=== PATIENT | male | born 1930 | race Caucasian/White ===

== ENCOUNTER 2017-03-24 16:03 | Inpatient (IN) | payer OTHER, MEDICAID ==
[~2017-03-24] VITALS: Ht 185.4 cm; Wt 98.9 kg
[~2017-03-24 16:03] MED LIST: ASPIR 8181 MG PO; AVODART0.5 MG PO; DEMADEX20 MG PO; DICLOFENAC SODI75 MG PO; FLOMAX0.4 MG PO; KLOR-CON 1010 MEQ PO; LASIX 20 MG TAB20 MG PO; LASIX 40 MG TAB40 M2 PO; LEVAQUIN 750 M750 MG PO; LISINOPRIL10 MG PO; MIRALAX17 GM PO; NYAMYC15 GM TOP; ONDANSETRON HCL4 M2 PO; PACERONE 200 M200 M1; PACERONE 200 M200 M1 PO; PACERONE200 MG PO; PREDNISONE 10 M10 MG PO; PROTONIX40 M1 PO; SENOKOT-S1 TA1 PO; SIMVASTATIN40 MG PO; TOPROL XL25 MG; TOPROL XL50 MG PO
[2017-03-24 16:05] VITALS: BP 138/58
[2017-03-24] MEDS ORDERED: LASIX 20 MG TAB20 MG PO (16:09)
[2017-03-24] MEDS ORDERED: CENTRUM SILVER1 EAC2 PO (16:10)
[2017-03-24] MEDS ORDERED: ZOCOR20 MG PO (16:10)
[2017-03-24] MEDS ORDERED: AVODART0.5 MG PO (16:10)
[2017-03-24 16:24] LABS: URINE BILIRUBIN NEGATIVE (Negative); URINE BLOOD NEGATIVE (Negative); URINE CLARITY CLEAR; URINE COLOR YELLOW; URINE GLUCOSE-RANDOM NEGATIVE (Negative); URINE KETONES NEGATIVE (Negative); URINE LEUKOCYTES-REFLEX 2+ (Negative); URINE NITRITE-REFLEX NEGATIVE (Negative); URINE PROTEIN NEGATIVE (Negative); URINE UROBILINOGEN 0.2 E.U./dl (0.2-1.0)
[2017-03-24 16:33] LABS: BACTERIA-REFLEX >30 Many /HPF (None Seen); MUCUS None Seen strn/LPF (None Seen); SQUAMOUS 0-3 Few /LPF (0-3); URINE WBC-REFLEX 6-15 Few /HPF (0-5); WBC CLUMPS Few (None Seen)
[2017-03-24 16:34] LABS: CRYSTALS None Seen /LPF (None Seen); HYALINE CASTS 0-3 Few /LPF (None Seen); URINE RBC None Seen /HPF (0-2)
[2017-03-24 16:58] LABS: HEMATOCRIT 31.2 % (42.0-52.0); HEMOGLOBIN 10.2 gm/dL (14.0-18.0); MCH 31.4 pg (26.0-34.0); MCHC 32.8 g/dL (28.0-37.0); MCV 95.5 fL (80.0-100.0); MPV 9.3 fl. (7.2-11.1); NUCLEATED RBCS 0 /100WBC; PLATELET COUNT* 161 thou/uL (150-400); RBC 3.27 mil/uL (4.50-6.00); RDW-CV 14.3 % (10.5-14.5); WBC 16.6 thou/uL (4.0-11.0)
[2017-03-24 17:05] LABS: CALCIUM 8.6 mg/dL (8.5-10.1); CREATININE 2.1 mg/dL (0.6-1.3)
[2017-03-24 17:09] LABS: ALBUMIN 2.7 g/dL (3.4-5.0); TOTAL BILIRUBIN 0.7 mg/dL (<0.1-1.0); TOTAL PROTEIN 6.1 g/dL (6.4-8.2)
[2017-03-24 17:24] LABS: ABSOLUTE LYMPHOCYTES 1.7 thou/uL (0.8-5.3); ABSOLUTE MONOCYTES 1.7 thou/uL (0.0-1.2); ABSOLUTE NEUTROPHILS 13.3 thou/uL (1.6-8.1); PLATELET ESTIMATE ADEQUATE
[2017-03-24 17:39] VITALS: BP 108/52
--- NOTE | 2017-03-24 18:32 | NUR ---
PT ARRIVED TO ROOM 108 VIA CART. IV INFILTRATED AAND REPLACED. PT ORIENTED TO ROOM. CALL LIGHT WITHIN REACH
[2017-03-24 18:35] VITALS: BP 109/43
[2017-03-24 20:00] VITALS: BP 115/49
[2017-03-25] VITALS: BP 110/39
[2017-03-25 04:00] VITALS: BP 111/45
--- NOTE | 2017-03-25 04:32 | NUR ---
PATIENT A/O X 4 AND VSS, ALTHOUGH HIS BLOOD PRESSURE HAS BEEN SLIGHTLY LOW. OVERNIGHT PATIENT WAS C/O BEING UNCOMFORTABLE IN THE BED, SO HE WAS UP MOST OF THE NIGHT IN A CHAIR. PATIENT'S CONTINUES TO BE WEAK, WITH AN UNSTEADY GAIT, AND IN NEED OF A WALKER TO AMBULATE. PATIENT HAS A HX OF AFIB AND ATRIAL FLUTTER, ALTHOUGH HIS HEART RATE REMAINS STEADY AND REGULAR DURING NIGHT. PATIENT HAS REDDENDED DISCOLORATION IN LOWER EXTREMETIES, BILATERALLY, AND PLACEMENT OF SCD'S HAS NOT BEEN ENFORCED AT THIS TIME. PATIENT'S DIET HAS BEEN CHANGED FROM RENAL TO REGULAR BY PHYSICIAN. PATIENT HAS NOT C/O ANY PAIN/DISCOMFORT DURING URINATION OVERNIGHT. HOURLY ROUNDING PERFORMED. NURSING TO FOLLOW-UP NECESSARY. ALL FALL PRECAUTIONS IN PLACE, INCLUDING CALL LIGHT WITHIN REACH. WILL CONTINUE TO MONITOR CLOSELY.
[2017-03-25 04:42] LABS: CALCIUM 8.1 mg/dL (8.5-10.1); CREATININE 2.1 mg/dL (0.6-1.3); POTASSIUM 4.1 mmol/L (3.5-5.1)
[2017-03-25 08:00] VITALS: BP 103/87
--- NOTE | 2017-03-25 13:11 | EKG ---
[place] [address] ELECTROCARDIOGRAM REPORT Name: ARIEL ARMENDARIZ Room: [address] ADM IN M.R.#: [id number] Admission: 03/24/17 Attend Phys: Timmy Suazo Discharge: Date of : 34 Report #: [id number] THIS REPORT FOR: //name// [facility] ED Test Date: 2017-03-24 Test Time: 16:53:48 Pat Name: ARIEL AMRENDARIZ Department: Room: [facility] Gender: Tv Host: Surya BEAUCHAMP : 1930 Requested By: Kaylan Lerma Order Number: [id number] MD: Sergo Bird Measurements Intervals [place] Rate: 66 P: 38 ID: [id number] QRS: -16 QRSD: 105 T: 50 QT: 422 QTc: 443 Interpretive Statements Sinus rhythm Atrial premature complex Borderline left axis deviation Abnormal R-wave progression, early transition Compared to ECG 01/27/2017 05:30:32 Atrial premature complex(es) now present Electronically Signed On 03-25-2017 13:11:17 MERCURY RECOVERER by Sergo Bird [email or web address] <ELECTRONICALLY SIGNED> By: Sergo Bird MD, FAC 03/25/17 1311 1653 1653 Sergo Bird MD, [facility] /EPI
--- NOTE | 2017-03-25 14:23 | NUR ---
RECIEVED O.T. EVAL AND CHART REVIEWED. PT. IS UP AD FANTASMA IN ROOM. TALKING WITH PT. AND NURSE AND HE IS INDEPENDENT WITH TOILETING AND DRESSED HIMSELF TODAY IN A BUTTON-UP SHIRT AND PAJAMA BOTTOMS. PT. DENIES NEED FOR O.T. SERVICES. O.T. SERVICES ARE NOT INDICATED AT THIS TIME.
--- NOTE | 2017-03-25 15:13 | NUR ---
PT UP IN ROOM WITH STEADY GAIT USING WALKER. PT CALLS APPROPRIATELY FOR ASSIST. PT/OT EVAL TODAY. PT DENIES NEED. PT TOLERATING PO WELL
--- NOTE | 2017-03-25 15:34 | NUR ---
CM SPOKE TO THE PATIENT TO DISCUSS HOME SITUATION, DISCHARGE PLANNING, AND TO INFORM OF THE ROLE OF CM. PATIENT ALERT, ORIENTED, AND INDEPENDENT WITH ADL'S. PATIENT RESIDES AT HOME ALONE. PATIENT USES A WALKER FOR MOBILITY. PATIENT RECENTLY DISCHARGED FROM [facility]. PATIENT HAS HH HX WITH [facility]. PATIENT PLANS TO RETURN HOME AT DISCHARGE. CM WILL REMAIN AVAILABLE TO ASSIST AND FOLLOW NEEDED.
[2017-03-25 16:01] VITALS: BP 109/77
--- NOTE | 2017-03-25 17:39 | NUR ---
ASSUME CARE OF PATIENT AT AT 1500. ALERT AND ORIENTED X4. UP AD FANTASMA IN ROOM WITH WALKER. IV IS PATENT AND SALINE LOCKED. DENIES PAIN AND NAUSEA. TOLERATING DIET. VSS ON 2L O2. HOURLY ROUNDS HAVE BEEN MAINTAINED SINCE ASSUMING CARE FOR PATIENT. CALL LIGHT IS WITHIN REACH. NURSING WILL CONTINUE TO MONITOR.
[2017-03-25 20:15] VITALS: BP 120/51
[2017-03-26 03:39] VITALS: BP 111/43
[2017-03-26 03:42] LABS: HEMATOCRIT 28.9 % (42.0-52.0); HEMOGLOBIN 9.5 gm/dL (14.0-18.0); MCH 31.4 pg (26.0-34.0); MCHC 32.8 g/dL (28.0-37.0); MCV 95.9 fL (80.0-100.0); MPV 9.1 fl. (7.2-11.1); RBC 3.02 mil/uL (4.50-6.00); RDW-CV 14.3 % (10.5-14.5); WBC 14.3 thou/uL (4.0-11.0)
[2017-03-26 03:54] LABS: CALCIUM 8.3 mg/dL (8.5-10.1); CREATININE 2.3 mg/dL (0.6-1.3); MAGNESIUM 2.1 mg/dL (1.8-2.4); POTASSIUM 4.9 mmol/L (3.5-5.1)
--- NOTE | 2017-03-26 05:18 | NUR ---
PATIENT ALERT AND ORIENTED. VITALS STABLE ON 3L OF OXYGEN. UP INDEPENDENTLY IN ROOM WITH WALKER. ENCOURAGED TO REPOSITION EVERY TWO HOURS. HEALING WOUND ON MID LOWER BUTTOCK, BARRIER CREAM APPLIED. DENIES PAIN OR ANY DISCOMFORT. HOURLY ROUNDS. INSTRUCTED TO CALL FOR ASSISTANCE. NURSING WILL CONTINUE TO MONITOR.
[2017-03-26 07:42] VITALS: BP 116/62
[2017-03-26 15:46] VITALS: BP 122/64
--- NOTE | 2017-03-26 16:25 | NUR ---
PATIENT REMAINS AT BASELINE ORIENTATION. DENIES PAIN. VOIDING PER URINAL OR TOILET. BM THIS SHIFT. URINE CULTURE CAME BACK ESBL+. PLACED IN ISOLATION. ZOSYN ORDERED. O2 3L. SAT 94%. AMBULATES AD FANTASMA. TOLERATING MEALS. NEPHROLOGY CONSULT CALLED- WILL SEE PT TOMORROW. CALL LIGHT WITHIN REACH. WILL CONTINUE TO MONITOR.
[2017-03-26 21:00] VITALS: BP 116/68
[2017-03-27 03:58] LABS: HEMATOCRIT 29.9 % (42.0-52.0); HEMOGLOBIN 9.8 gm/dL (14.0-18.0); MCH 31.3 pg (26.0-34.0); MCHC 32.7 g/dL (28.0-37.0); MCV 95.9 fL (80.0-100.0); MPV 9.1 fl. (7.2-11.1); RBC 3.11 mil/uL (4.50-6.00); RDW-CV 14.6 % (10.5-14.5); WBC 8.1 thou/uL (4.0-11.0)
[2017-03-27 04:11] LABS: CALCIUM 8.4 mg/dL (8.5-10.1); CREATININE 1.8 mg/dL (0.6-1.3); MAGNESIUM 2.2 mg/dL (1.8-2.4); POTASSIUM 4.1 mmol/L (3.5-5.1)
[2017-03-27 04:13] VITALS: BP 152/64
--- NOTE | 2017-03-27 05:19 | NUR ---
PATIENT ALERT AND ORIENTED. VITALS STABLE. ON 3L OF OXYGEN. CONTACT ISOLATION FOR ESBL IN THE URINE. DENIES ANY NEEDS. UP INDEPENDENTLY IN ROOM. REPOSITIONS SELF IN BED. INSTRUCTED TO CALL FOR ASSISTANCE. HOURLY ROUNDS. NURSING WILL CONTINUE TO MONITOR.
[2017-03-27 08:25] VITALS: BP 121/54
[2017-03-27 16:01] VITALS: BP 127/58
--- NOTE | 2017-03-27 16:15 | NUR ---
PATIENT REMAINS ALERT AND ORIENTED. AMBULATING AD FANTASMA IN ROOM. REMAINS IN ISO FOR ESBL. BM TODAY. NEW IV THIS AM. ZOSYN Q6. NEPHROLOGY CONSULTED. CALL LIGHT WITHIN REACH. WILL CONTINUE TO MONITOR.
[2017-03-27 20:40] VITALS: BP 129/58
[2017-03-28 04:00] VITALS: BP 136/67
[2017-03-28 04:05] LABS: HEMATOCRIT 29.5 % (42.0-52.0); MCHC 33.8 g/dL (28.0-37.0); MCV 94.8 fL (80.0-100.0); MPV 9.1 fl. (7.2-11.1); RBC 3.11 mil/uL (4.50-6.00); RDW-CV 14.3 % (10.5-14.5); WBC 8.4 thou/uL (4.0-11.0)
[2017-03-28 04:19] LABS: CALCIUM 8.5 mg/dL (8.5-10.1); CREATININE 1.9 mg/dL (0.6-1.3); POTASSIUM 4.2 mmol/L (3.5-5.1)
[2017-03-28 04:21] LABS: CALCIUM 8.4 mg/dL (8.5-10.1); MAGNESIUM 2.3 mg/dL (1.8-2.4); POTASSIUM 4.4 mmol/L (3.5-5.1)
--- NOTE | 2017-03-28 07:39 | NUR ---
PATIENT ALERT AND ORIENTED. VITALS STABLE. ON 3L OF OXYGEN. UP INDEPENDENTLY. DENIES ANY DISCOMFORT. SLEPT COMFORTABLY THROUGH THE NIGHT. HOURLY ROUNDS. BED ALARM IN USE. NURSING WILL CONTINUE TO MONITOR.
[2017-03-28 07:45] VITALS: BP 130/72
--- NOTE | 2017-03-28 12:29 | NUR ---
Nutrition: Pt assessed for pressure ulcer. Admitted with sepsis 2/2 UTI. RX noted. H/o CKD III-IV, HTN. Physician indicated Moderate PCM - defer DX. Labs: albumin 2.7, prealbumin 18.7. Pt is eating 75-100% of regular diet. Per notes, wound is healing, on bilat buttocks. Wt: 218#. No nutritional interventions needed at this time. Consider Mild risk.
[2017-03-28 16:00] VITALS: BP 134/70
--- NOTE | 2017-03-28 16:21 | NUR ---
PATIENT REMAINS ALERT AND ORIENTED. IV SALINE LOCKED. DENIES PAIN. AMBULATING AD FANTASMA. O2 AT 3L. PATIENT WILL DISCHARGE TOMORROW. BM THIS AM. BRIEFS PROVIDED. PATIENT REFUSED TO HAVE BUTTOCKS WOUND LOOKED AT AGAIN, STATING IT WAS ALREADY PHOTOGRAPHED. TOLERATING MEALS. VSS. CALL LIGHT WITHIN REACH. WILL CONTINUE TO MONITOR.
[2017-03-28 21:00] VITALS: BP 143/53
[2017-03-29 08:00] VITALS: BP 155/62
--- NOTE | 2017-03-29 08:15 | NUR ---
PATIENT HAS SLEPT WELL THROUGHOUT THE NIGHT WIHTOUT ANY ISSUES. NO C/O PAIN. PATIENT USES BEDSIDE URINAL AND IS UP AD-FANTASMA WITH WALKER. VSS ON 3L 02 VIA NASAL CANNULA. PATIENT REFUSED TO HAVE AM LABS DRAWN. IV IN LEFT HAND-SL. PATIENT INSTRUCTED TO USE CALL LIGHT WHEN NEEDING ASSISTANCE. HOURLY ROUNDS MADE. WILL CONTINUE WITH PLAN OF CARE AND NURSING TO MONITOR.
[2017-03-29 08:31] VITALS: BP 155/62
--- NOTE | 2017-03-29 09:41 | NUR ---
PATIENT REFUSED LABS THIS AM
[2017-03-29 10:29] LABS: CALCIUM 8.6 mg/dL (8.5-10.1); CREATININE 1.5 mg/dL (0.6-1.3)
[2017-03-29] MEDS ORDERED: CIPRO500 MG PO (13:24)
[2017-03-29] MEDS ORDERED: CIPRO250 M2 PO (13:28)
--- NOTE | 2017-03-29 14:00 | NUR ---
SPOKE WITH PT.ABOUT HOME HEALTH. HE SAID HE HAS A CAREGIVER THAT COMES -W- TO HELP CLEAN HIS HOUSE,DO ERRANDS,HELP HIM BATHE. EXPLAINED A HOME HEALTH NURSE WOULD COME OUT TO MAKE SURE HIS LUNGS ARE CLEAR, MANAGE HIS MEDICATIONS, ETC. HE FELT THIS WOULD BE OK. HE HAD BEEN ON SERVICE WITH [facility] IN THE PAST. CM SPOKE WITH PRANE[facility]/[employer] . SHE SAID THEY HAD ACTUALLY RELEASED HIM FROM SERVICE ON 03/23. PT.CAME BACK IN TO HOSPITAL 03/24. SHE SAID THEY WOULD ACCEPT HIM BACK ONTO SERVICE. FAXED DISCHARGE ORDERS AND DISCHARGE SUMMARIES AND FACE SHEET TO HER AT [phone]. HE WAS CALLING HIS AMANDEEP DUCKWORTH TO COME TO PICK HIM UP AND TOLD HER TO BRING A PORTABLE O2 TANK.
--- NOTE | 2017-03-29 14:25 | NUR ---
PATIENT DISCHARGED TO HOME AT THIS TIME. IV REMOVED. PATIENT WILL HAVE HOME HEALTH. REFUSED DISCHARGE PICTURE OF BUTTOCKS. SCRIPT FOR CIPRO SENT TO PHARMACY. PATIENT INSTRUCTED TO HOLD LASIX AND FLOMAX UNTIL SEEN BY PCP. PATIENT VERBALIZED UNDERSTANDING. DISCHARGED WITH [facility]RIEND[facility].
[2017-03-29 17:12] LABS: IgA 238 mg/dL (61-437); IgG 815 mg/dL (700-1600); IgM 46 mg/dL (15-143)
[2017-04-01 09:10] LABS: M-SPIKE Not Observed g/dL (Not Observed)
--- NOTE | 2017-04-12 12:37 | CON ---
[address] [address] CONSULTATION Name: ARIEL ARMENDARIZ Room: [address] IN M.R.#: [id number] Admission: 03/24/17 Attend Phys: Timmy Suazo Discharge: 03/29/17 Date of : 34 Report #: [id number] THIS REPORT FOR: //name// CC: Tom Arcos DATE OF SERVICE: 03/27/2017 CONSULTING PHYSICIAN: Mauricio Allen MD REASON FOR CONSULTATION: Acute kidney injury on chronic kidney disease stage 3. CHIEF COMPLAINT: Increased frequency of urination. HISTORY OF PRESENT ILLNESS: This is an 86-year-old very pleasant male with past medical history of chronic kidney disease stage 3 with baseline creatinine of around 1.3-1.6, degenerative joint disease, hypertension, history of ischemic cardiomyopathy who came in feeling weak and having increased frequency of urination. He was found to have a urinary tract infection. His creatinine was 2.1 on admission, then went up to 2.3, but it is down to 1.8. His diuretic, Lasix, was held. He was also given some IV fluids. He is growing ESBL E. coli in his urine and is getting IV Zosyn for that. He had renal ultrasound also, which did not show any acute abnormality. The patient has had several urinary tract infections and most recently in January of last year and at that time also it was because of diuretics. The patient was also taking NSAIDs at that time, which he has now stopped. The patient is feeling better now. REVIEW OF SYSTEMS: The patient feels weak, otherwise 10-point review of systems done, negative. PAST MEDICAL HISTORY: As above: 1. Degenerative joint disease. 2. Hypertension. 3. Ischemic cardiomyopathy. 4. Chronic kidney disease stage 3 with baseline creatinine 1.3-1.6. 5. Benign prostatic hypertrophy. 6. Atrial flutter/atrial fibrillation. 7. Gastroesophageal reflux disease. PAST SURGICAL HISTORY: Includes cardiac catheterization, appendectomy. ALLERGIES: Reviewed. MEDICATIONS: Current home medications and [place] [address] CONSULTATION Name: ARIEL ARMENDARIZ Room: [address] IN [facility].#: [id number] Admission: 03/24/17 Attend Phys: Timmy Suazo Discharge: 03/29/17 Date of : 34 Report #: [id number] SOCIAL HISTORY: Never smoker. No alcohol use or recreational drug use. FAMILY HISTORY: Noncontributory. PHYSICAL EXAMINATION: VITAL SIGNS: Blood pressure is 121/54, pulse rate of 64, temperature 36.3, respiratory rate is 16. GENERAL: He is awake, alert, oriented x 3, no acute distress. HEAD, EYES, EARS, NOSE, THROAT: Mucous membranes are moist. NECK: No JVD. CHEST: Clear to auscultation bilaterally, no crackles heard. CARDIOVASCULAR: S1, S2 normal. No murmurs heard. ABDOMEN: Obese, otherwise soft, nondistended, nontender. Bowel sounds are present. EXTREMITIES: He has 1+ lower extremity edema as well as erythema. NEUROLOGIC: Gross neurological function seems to be intact. PSYCHIATRIC: Mood and affect seems to be normal. LABORATORY DATA: Hemoglobin is 9.8, platelet count is 169. Sodium is 143, potassium 4.1, creatinine is 1.8. Other labs were reviewed. IMAGING: Renal ultrasound and chest x-ray were reviewed. ASSESSMENT: 1. Acute kidney injury on chronic kidney disease stage 3, likely because of dehydration. 2. Lower tract urinary tract infection with extended-spectrum beta-lactamase Escherichia coli. 3. Hypertension. PLAN: The patient likely has acute renal failure because of Lasix. Agree with holding diuretics for now. Creatinine is getting better. The patient does not require extra IV fluids. The patient had workup for chronic kidney disease back in January. SPEP was negative. He is getting IV Zosyn for his lower tract urinary tract infection. His blood pressure is controlled. The patient should follow up with us in 2-3 weeks after discharge. Thank you for this consultation. I will continue to follow along. <ELECTRONICALLY SIGNED> By: Ernestina Neri MD 04/12/17 1237 0830 [id number] Neri MD /nt
== END 2017-03-29 14:27 | disposition home health service (06) | DRG 871 ==
LOC: M.ERS 16:03 → M.TBA-ER 16:48 → M.ORTHSURG 16:48
PROVIDERS: Family Medicine; Internal Medicine; Internal Medicine Nephrology; Physician Assistant; ADMIT Internal Medicine
DX: A41.9 Sepsis, unspecified organism (principal); N17.0 Acute kidney failure with tubular necrosis; N39.0 Urinary tract infection, site not specified; E44.0 Moderate protein-calorie malnutrition; I48.92 Unspecified atrial flutter; I12.9 Hypertensive chronic kidney disease with stage 1 through stage 4 chronic kidney disease, or unspecified chronic kidney disease; N18.3 Chronic kidney disease, stage 3 (moderate); M19.90 Unspecified osteoarthritis, unspecified site; I25.5 Ischemic cardiomyopathy; B96.20 Unspecified Escherichia coli [E. coli] as the cause of diseases classified elsewhere; E86.0 Dehydration; Z16.12 Extended spectrum beta lactamase (ESBL) resistance; N40.0 Benign prostatic hyperplasia without lower urinary tract symptoms; I48.91 Unspecified atrial fibrillation; K21.9 Gastro-esophageal reflux disease without esophagitis; E66.9 Obesity, unspecified; D64.9 Anemia, unspecified; T50.2X5A Adverse effect of carbonic-anhydrase inhibitors, benzothiadiazides and other diuretics, initial encounter; Y92.89 Other specified places as the place of occurrence of the external cause; Z68.28 Body mass index [BMI] 28.0-28.9, adult; Z90.49 Acquired absence of other specified parts of digestive tract; I25.2 Old myocardial infarction; Z79.82 Long term (current) use of aspirin; Z79.899 Other long term (current) drug therapy

== ENCOUNTER 2017-08-06 21:01 | Emergency (ER) | payer OTHER, MEDICAID ==
[~2017-08-06] VITALS: Ht 185.4 cm; Wt 102.1 kg
[~2017-08-06 21:01] MED LIST changes: +CENTRUM SILVER1 EAC2 PO; +CIPRO250 M2 PO; +CIPRO500 MG PO; +ZOCOR20 MG PO
[2017-08-06] MEDS ORDERED: FINASTERIDE (21:07)
[2017-08-06] MEDS ORDERED: FUROSEMIDE (21:07)
[2017-08-06 21:21] LABS: ABSOLUTE EOSINOPHILS 0.3 thou/uL (0.0-0.7); ABSOLUTE MONOCYTES 0.8 thou/uL (0.0-1.2); ABSOLUTE NEUTROPHILS 4.2 thou/uL (1.6-8.1); BASOPHILS 0.6 %; EOSINOPHILS 3.5 %; HEMATOCRIT 32.4 % (42.0-52.0); HEMOGLOBIN 10.6 gm/dL (14.0-18.0); MCH 30.9 pg (26.0-34.0); MCHC 32.7 g/dL (28.0-37.0); MCV 94.5 fL (80.0-100.0); MONOCYTES 11.4 %; MPV 9.1 fl. (7.2-11.1); NUCLEATED RBCS 0 /100WBC; PLATELET COUNT* 187 thou/uL (150-400); POLYS 57.5 %; RBC 3.43 mil/uL (4.50-6.00); RDW-CV 14.5 % (10.5-14.5); WBC 7.3 thou/uL (4.0-11.0)
[2017-08-06 21:30] LABS: ANION GAP 5 mmol/L (7-16); BUN 20 mg/dL (7-18); CALCIUM 8.7 mg/dL (8.5-10.1); CHLORIDE 104 mmol/L (98-107); CO2 33 mmol/L (21-32); GLUCOSE 119 mg/dL (70-99); POTASSIUM 4.6 mmol/L (3.5-5.1); SODIUM 142 mmol/L (136-145)
[2017-08-06 21:41] LABS: ALBUMIN 3.1 g/dL (3.4-5.0); ALKALINE PHOSPHATASE 140 U/L (46-116); NT-PRO BRAIN NAT PEPTIDE 543 pg/mL (<300); SGOT 20 U/L (15-37); SGPT 20 U/L (30-65); TOTAL BILIRUBIN 0.4 mg/dL (<0.1-1.0); TOTAL PROTEIN 6.9 g/dL (6.4-8.2); TROPONIN-I LEVEL <0.06 ng/mL (<0.06)
[2017-08-07 01:36] VITALS: BP 148/56
--- NOTE | 2017-08-08 18:38 | EKG ---
[place] [address] ELECTROCARDIOGRAM REPORT Name: SHARLENEFLOYDARIEL Ramone [id number] Admission: 08/06/17 Attend Phys: Discharge: 08/07/17 Date of : 34 Report #: [id number] THIS REPORT FOR: //name// [facility] ED Test Date: 2017-08-06 Test Time: 21:28:31 Pat Name: ARIEL ARMENDARIZ Department: Room: Gender: M Turbo Generator Oiler: SACHIN : 1930 Requested By: Janneth Roger Order Number: [id number] MD: Tom Steinberg Measurements Intervals [place] Rate: 67 P: -1 DC: 154 QRS: -13 QRSD: 101 T: 57 QT: 447 QTc: 472 Interpretive Statements Sinus rhythm Abnormal R-wave progression, early transition Baseline wander in lead(s) II,III,aVL,aVF Compared to ECG 03/24/2017 16:53:48 Atrial premature complex(es) no longer present Electronically Signed On 08-08-2017 18:38:16 CDT by Tom Steinberg [email or web address] <ELECTRONICALLY SIGNED> By: Tom Steinberg MD, [facility] 08/08/17 1838 27 27 Tom Steinberg MD, [facility] /EPI
== END 2017-08-07 01:40 | disposition home or self-care (01) ==
LOC: M.ERS 21:01
PROVIDERS: Emergency Medicine
DX: R06.00 Dyspnea, unspecified (principal); I11.0 Hypertensive heart disease with heart failure; I50.9 Heart failure, unspecified; M19.90 Unspecified osteoarthritis, unspecified site; K21.9 Gastro-esophageal reflux disease without esophagitis; Z95.5 Presence of coronary angioplasty implant and graft; Z90.49 Acquired absence of other specified parts of digestive tract

== ENCOUNTER 2018-04-25 15:37 | Emergency (ER) | payer OTHER, MEDICAID ==
[~2018-04-25] VITALS: Ht 177.8 cm; Wt 108.0 kg
[~2018-04-25 15:37] MED LIST changes: +FINASTERIDE; +FUROSEMIDE
[2018-04-25 15:45] VITALS: BP 170/34
[2018-04-25 16:00] LABS: ABSOLUTE BASOPHILS 0.1 thou/uL (0.0-0.2); ABSOLUTE EOSINOPHILS 0.2 thou/uL (0.0-0.7); ABSOLUTE LYMPHOCYTES 2.6 thou/uL (0.8-5.3); ABSOLUTE MONOCYTES 1.1 thou/uL (0.0-1.2); ABSOLUTE NEUTROPHILS 5.4 thou/uL (1.6-8.1); BASOPHILS 0.7 %; EOSINOPHILS 2.5 %; HEMATOCRIT 34.4 % (42.0-52.0); HEMOGLOBIN 11.3 gm/dL (14.0-18.0); LYMPHOCYTES 27.4 %; MCH 31.6 pg (26.0-34.0); MCHC 32.9 g/dL (28.0-37.0); MONOCYTES 11.8 %; MPV 9.9 fl. (7.2-11.1); NUCLEATED RBCS 0 /100WBC; PLATELET COUNT* 156 thou/uL (150-400); POLYS 57.6 %; RBC 3.58 mil/uL (4.50-6.00); RDW-CV 14.2 % (10.5-14.5); WBC 9.3 thou/uL (4.0-11.0)
[2018-04-25 16:11] LABS: PROTIME 10.1 Seconds (9.20-11.50)
[2018-04-25 16:14] LABS: ALBUMIN 3.4 g/dL (3.4-5.0); CREATININE 2.4 mg/dL (0.6-1.3); POTASSIUM 4.3 mmol/L (3.5-5.1); TOTAL BILIRUBIN 0.5 mg/dL (<0.1-1.0); TOTAL PROTEIN 7.1 g/dL (6.4-8.2)
== END 2018-04-25 16:45 | disposition home or self-care (01) ==
LOC: M.ERS 15:37
PROVIDERS: Family Medicine
DX: R04.0 Epistaxis (principal); M19.90 Unspecified osteoarthritis, unspecified site; K21.9 Gastro-esophageal reflux disease without esophagitis; I11.0 Hypertensive heart disease with heart failure; I50.9 Heart failure, unspecified; Z95.5 Presence of coronary angioplasty implant and graft; Z90.49 Acquired absence of other specified parts of digestive tract

== ENCOUNTER 2019-05-02 21:11 | Inpatient (IN) | payer OTHER, MEDICAID ==
[~2019-05-02] VITALS: Ht 185.4 cm; Wt 106.8 kg
[2019-05-02 21:16] VITALS: BP 118/73
[2019-05-02 21:56] LABS: BE 1.5 mmol/L (-2 to +3); PCO2 44.9 mmHg (35.0-45.0); PO2 76.6 mmHg (75.0-100.0); pH 7.393 (7.340-7.450)
[2019-05-02 22:01] LABS: INFLUENZA A ANTIGEN Negative (Negative); INFLUENZA B ANTIGEN Negative (Negative)
[2019-05-02 22:04] LABS: ABSOLUTE BASOPHILS 0.1 thou/uL (0.0-0.2); ABSOLUTE EOSINOPHILS 0.2 thou/uL (0.0-0.7); ABSOLUTE LYMPHOCYTES 1.1 thou/uL (0.8-5.3); ABSOLUTE MONOCYTES 1.4 thou/uL (0.0-1.2); ABSOLUTE NEUTROPHILS 7.4 thou/uL (1.6-8.1); BASOPHILS 0.7 %; EOSINOPHILS 1.5 %; HEMATOCRIT 30.5 % (42.0-52.0); HEMOGLOBIN 10.3 gm/dL (14.0-18.0); LYMPHOCYTES 10.6 %; MCH 32.4 pg (26.0-34.0); MCHC 33.8 g/dL (28.0-37.0); MCV 95.9 fL (80.0-100.0); MONOCYTES 14.2 %; MPV 9.4 fl. (7.2-11.1); NUCLEATED RBCS 0 /100WBC; PLATELET COUNT* 137 thou/uL (150-400); RBC 3.18 mil/uL (4.50-6.00); RDW-CV 14.5 % (10.5-14.5); WBC 10.2 thou/uL (4.0-11.0)
[2019-05-02 22:11] LABS: CALCIUM 7.9 mg/dL (8.5-10.1); CREATININE 2.4 mg/dL (0.6-1.3); POTASSIUM 4.5 mmol/L (3.5-5.1)
[2019-05-02 22:22] LABS: ALBUMIN 2.8 g/dL (3.4-5.0); TOTAL BILIRUBIN 0.5 mg/dL (<0.1-1.0); TOTAL PROTEIN 6.3 g/dL (6.4-8.2)
[2019-05-03 00:51] VITALS: BP 162/72
[2019-05-03 04:00] VITALS: BP 131/47
--- NOTE | 2019-05-03 08:41 | NUR ---
PT ADMITTED TO ROOM 208 DURING [employer]; VSS, A+OX4, 3LO2 NC, BEDREST, BILATERAL RILEY REDNESS (PICTURES TAKEN), FLANAGAN PLACED IN ER, VOICE HOARSENESS, AFEBRILE. HE IS ABLE TO COMMUNICATE HIS NEEDS TO STAFF WITH MINOR DIFFICULTY; VOICE IS HOARSE. HE HAS DENIED THE NEED FOR PAIN MEDICATION UP TO THIS TIME. FLANAGAN HAS BEEN PATENT UP TO THIS TIME. WOUND CARE CONSULTED.
[2019-05-03 08:54] VITALS: BP 139/58
[2019-05-03 11:49] VITALS: BP 143/56
--- NOTE | 2019-05-03 13:12 | NUR ---
WOUND NURSE: PATIENT SEEN TO ADDRESS INTEGUMATARY SYSTEM ON BLE. PRESENT WITH REDNESS NO WOUNDS. SKIN COVERED IN PLACES WITH OILY CRUSTS. PATIENT WITH 2 PLUS PITTING EDEMA IN BILATERAL FEET. CAPILLARY REFILL IS </= 3 SECONDS. LEGS ARE WARM AND REDDENED. I RAISED THE FOB TO HELP CONTROL SWELLING AND RECOMMEND USE OF TOE TO KNEE TUBIGRIPS SIZE E BLE -- PATIENT'S NURSE WAS INFORMED OF THIS RECOMMENDATION AND SHE TO DISCUSS WITH PHYSICIAN.
--- NOTE | 2019-05-03 15:30 | NUR ---
Pt is A&O. Resides at home alone. Independent with ADLs. Pt has a caregiver through [facility] that comes MWF for 4.25hrs, she completes the cleaning. Pt prepares his own meals and niece provides transportation. Pt uses a walker for mobility. Pt wears home o2 continuous at 2L through [facility]. Hx of [facility] . Hx of skilled at [facility]. Goal is home at ct, per , anticipate dc in a few days. Pt does not anticipate any needs. Following.
[2019-05-03 16:22] VITALS: BP 129/51
--- NOTE | 2019-05-03 16:37 | EKG ---
[place] [address] ELECTROCARDIOGRAM REPORT Name: ARIEL ARMENDARZI Room: [address] ADM IN M.R.#: [id number] Admission: 05/02/19 Attend Phys: Franklin Felix Discharge: Date of : 34 Date of Service: 05/02/19 2300 Report #: [id number] THIS REPORT FOR: //name// [facility] ED Test Date: 2019-05-02 Test Time: 23:00:18 Pat Name: ARIEL ARMENDARIZ Department: Room: [facility] Gender: M Inside Sales Coordinator: XIOMY : 1930 Requested By: Lainey Gonsales Order Number: [id number] MD: Tom Steinberg Measurements Intervals [place] Rate: 57 P: 16 KS: 196 QRS: -12 QRSD: 115 T: 66 QT: 442 QTc: 431 Interpretive Statements Sinus rhythm Incomplete right bundle branch block Compared to ECG 08/06/2017 21:28:31 Incomplete right bundle-branch block now present Electronically Signed On 05-03-2019 16:36:13 CDT by Tom Steinberg [email or web address] <ELECTRONICALLY SIGNED> By: Tom Steinberg MD, FAC 05/03/19 1636 99 99 Tom Steinberg MD, [facility] /EPI
--- NOTE | 2019-05-03 18:28 | 2DMMODE ---
[place] [address] 2 D/M-MODE ECHOCARDIOGRAM Name: ARIEL ARMENDARIZ Ramone Room: [address] ADM IN R.#: [id number] Admission: 05/02/19 Attend Phys: Franklin Felix Discharge: Date of : 34 Date of Service: 05/03/19 1827 Report #: [id number] THIS REPORT FOR: cc: Tom Hagen John E. DO Liston, Michael J. MD [facility] ~ APPROVED REPORT Study performed: 05/03/2019 11:09:26 EXAM: Comprehensive 2D, Doppler, and color-flow Echocardiogram Patient Location: In-Patient Room #: [facility] Status: routine BSA: 2.30 HR: 64 bpm BP: 139/58 mmHg Rhythm: NSR Other Information Study Quality: Good Indications Congestive Heart Failure Dyspnea 2D Dimensions IVSd: 11.35 (7-11mm) LVOT Diam: 20.83 (18-24mm) LVDd: 53.06 mm PWd: 10.23 (7-11mm) Ascending Ao: 33.93 (22-36mm) LVDs: 37.25 (25-40mm) Aortic Root: 35.22 mm Volumes Left Atrial Volume (Systole) LA ESV Index: 28.50 mL/m2 Aortic Valve AoV Peak Mariano.: 1.65 m/s AO Peak Gr.: 10.89 mmHg LVOT Max P.24 mmHg AO Mean Gr.: 6.19 mmHg LVOT Mean P.87 mmHg LVOT Max V: 1.25 m/s AO V2 VTI: 35.81 cm LVOT Mean V: 0.77 m/s MARNI (VTI): 2.80 cm2 LVOT V1 VTI: 29.40 [place] [address] 2 D/M-MODE ECHOCARDIOGRAM Name: ARIEL ARMENDARIZ Room: [address] IN .R.#: [id number] Admission: 05/02/19 Attend Phys: Franklin Felix Discharge: Date of : 34 Date of Service: 05/03/19 1827 Report #: [id number] Mitral Valve E/A Ratio: 1.18 MV Decel. Time: 194.76 ms MV E Max Mariano.: 0.94 m/s MV PHT: 56.48 ms MVA (PHT): 3.90 cm2 TDI E/Lateral E': 6.71 E/Medial E': 8.55 Medial E' Mariano.: 0.11 m/s Lateral E' Mariano.: 0.14 m/s Pulmonary Valve PV Peak Mariano.: 1.00 m/s PV Peak Gr.: 3.97 mmHg Tricuspid Valve RAP Estimate: 5.00 mmHg TR Peak Gr.: 17.47 mmHg RVSP: 22.00 mmHg PA Pressure: 22.00 mmHg Left Ventricle The left ventricle is normal size. There is normal LV segmental wall motion. There is normal left ventricular wall thickness. Left ventricular systolic function is normal. LVEF is 55-60%. Transmitral Doppler flow pattern suggests impaired LV relaxation. Right Ventricle The right ventricle is normal size. The right ventricular systolic function is normal. Atria Left atrium is mildly dilated. The right atrium size is normal. Aortic Valve Mild aortic valve sclerosis. No aortic regurgitation is present. There is no aortic valvular stenosis. Mitral Valve The mitral valve is normal in structure. Mild mitral regurgitation. No evidence of mitral valve stenosis. Tricuspid Valve The tricuspid valve is normal in structure. Trace tricuspid regurgitation. [place] [address] 2 D/M-MODE ECHOCARDIOGRAM Name: ARIEL ARMENDARIZ Room: [address] IN [facility]#: [id number] Admission: 05/02/19 Attend Phys: Franklin Felix Discharge: Date of : 34 Date of Service: 05/03/19 1827 Report #: [id number] Pulmonic Valve The pulmonary valve is normal in structure. There is no pulmonic valvular regurgitation. Great Vessels The aortic root is normal in size. IVC is normal in size and collapses >50% with inspiration. Pericardium There is no pericardial effusion. <Conclusion> The left ventricle is normal size. There is normal left ventricular wall thickness. Left ventricular systolic function is normal. LVEF is 55-60%. Transmitral Doppler flow pattern suggests impaired LV relaxation. Left atrium is mildly dilated. Mild mitral regurgitation. Trace tricuspid regurgitation. No pulmonary hypertension. IVC is normal in size and collapses >50% with inspiration. <ELECTRONICALLY SIGNED> By: Miguel Wills MD, FACC 05/03/191826 26 26 Miguel Wills MD, FACC /INF
[2019-05-03 20:51] VITALS: BP 130/59
[2019-05-04] VITALS: BP 127/45
[2019-05-04 04:00] VITALS: BP 137/45
[2019-05-04 05:02] LABS: HEMATOCRIT 31.6 % (42.0-52.0); HEMOGLOBIN 10.4 gm/dL (14.0-18.0); MPV 10.1 fl. (7.2-11.1); NUCLEATED RBCS 0 /100WBC; PLATELET COUNT* 149 thou/uL (150-400); RBC 3.26 mil/uL (4.50-6.00); RDW-CV 14.6 % (10.5-14.5); WBC 11.8 thou/uL (4.0-11.0)
[2019-05-04 05:16] LABS: CALCIUM 8.2 mg/dL (8.5-10.1); CREATININE 2.1 mg/dL (0.6-1.3); POTASSIUM 4.9 mmol/L (3.5-5.1)
--- NOTE | 2019-05-04 05:25 | NUR ---
PT IS ABLE TO COMMUNICATE HIS NEEDS TO STAFF EFFECTIVELY. HE HAS DENIED THE NEED FOR PAIN MEDICATION UP TO THIS TIME. FLANAGAN HAS BEEN PATENT UP TO THIS TIME; TOLERATED BY PT. BILATERAL CALF HIGH TUBIGRIPS PLACED ON PT AT HS; TOLERATED WELL.
[2019-05-04 06:19] LABS: ABSOLUTE LYMPHOCYTES 1.7 thou/uL (0.8-5.3); ABSOLUTE MONOCYTES 0.1 thou/uL (0.0-1.2)
[2019-05-04 06:20] LABS: PLATELET ESTIMATE DECREASED
[2019-05-04 08:00] VITALS: BP 135/59
[2019-05-04 12:00] VITALS: BP 146/58
[2019-05-04 15:45] VITALS: BP 146/58
[2019-05-05] VITALS: BP 152/58
[2019-05-05 04:00] VITALS: BP 126/43
[2019-05-05 04:28] LABS: ABSOLUTE LYMPHOCYTES 0.5 thou/uL (0.8-5.3); ABSOLUTE MONOCYTES 0.6 thou/uL (0.0-1.2); ABSOLUTE NEUTROPHILS 12.9 thou/uL (1.6-8.1); BASOPHILS 0.1 %; HEMATOCRIT 30.6 % (42.0-52.0); LYMPHOCYTES 3.7 %; MCHC 32.9 g/dL (28.0-37.0); MCV 97.3 fL (80.0-100.0); MONOCYTES 4.3 %; MPV 9.7 fl. (7.2-11.1); NUCLEATED RBCS 0 /100WBC; PLATELET COUNT* 156 thou/uL (150-400); POLYS 91.9 %; RBC 3.14 mil/uL (4.50-6.00); RDW-CV 14.5 % (10.5-14.5)
[2019-05-05 05:02] LABS: ALBUMIN 2.5 g/dL (3.4-5.0); CALCIUM 8.3 mg/dL (8.5-10.1); POTASSIUM 4.4 mmol/L (3.5-5.1); TOTAL BILIRUBIN 0.2 mg/dL (<0.1-1.0); TOTAL PROTEIN 6.2 g/dL (6.4-8.2)
[2019-05-05 08:00] VITALS: BP 168/69
[2019-05-05 16:38] VITALS: BP 159/73
--- NOTE | 2019-05-05 18:38 | NUR ---
ASSUMED PT CARE AT 0730, FULL ASSESMENT DONE CHARTED. PT A/O X4, PLEASANT, ON RA, STATES HE ONLY WEARS 2L AT HOME BUT IS ON 4L [place]. SATS 91-93%, NON PRODUCTIVE COUGH. SR/BBB ON THE MONITOR. WOUND CARE TO LEGS, SIZE E TUBIGRIPS REPLACED. PINK BLANCHABLE BOTTOM. FLANAGAN REMAIN DD, DIURESSING WITH LASIX. FALL PRECAUTIONS IN PLACE. USES CALL LIGHT APPROPRIALTY.
[2019-05-05 19:40] VITALS: BP 154/73
[2019-05-06] VITALS: BP 123/47
[2019-05-06 04:00] VITALS: BP 149/60
[2019-05-06 05:21] LABS: CALCIUM 8.5 mg/dL (8.5-10.1); POTASSIUM 4.4 mmol/L (3.5-5.1)
[2019-05-06 09:00] VITALS: BP 139/86
[2019-05-06 15:26] VITALS: BP 128/46
[2019-05-06 16:02] VITALS: BP 145/77
--- NOTE | 2019-05-06 19:08 | NUR ---
I ASSUMED CARE OF THE PATIENT AT 0700. HE IS ALERT AND ORIENTED X4 AND IS UP WITH ASSIST OF 1 AND A WALKER. BED IS IN THE LOW LOCKED POSITION AND CALL LIGHT IS IN REACH. HOURLY ROUNDING IS COMPLETED AND PATIENT NEEDS ARE MET. PAIN IS DENIED. HE SHOULD D/C ON TUESDAY. WILL CONTINUE TO MONITOR. OXYGEN WAS TITRATED DOWN TO 2LITERS NC. PATIENT PLANS TO RETURN TO ASSISTED LIVING AT [facility]. HE WANTS TO GET UP AND MOV A LITTLE MORE BEFORE HE GOES.
[2019-05-06 20:10] VITALS: BP 137/58
[2019-05-07] VITALS: BP 112/34
[2019-05-07 01:00] VITALS: BP 117/44
[2019-05-07 04:00] VITALS: BP 116/36
--- NOTE | 2019-05-07 08:06 | NUR ---
PT CARE ASSUMED AT 1930. SAT MAINTAINED IN O2. ALERT AND ORIENTED X4. DENIES PAIN. CALL LIGHT WITHIN REACH AND BED IN LOW POSITION. HOURLY ROUNDING DONE FOR PT SAFETY.
[2019-05-07 11:30] LABS: ABSOLUTE EOSINOPHILS 0.3 thou/uL (0.0-0.7); ABSOLUTE LYMPHOCYTES 0.9 thou/uL (0.8-5.3); ABSOLUTE MONOCYTES 1.4 thou/uL (0.0-1.2); ABSOLUTE NEUTROPHILS 8.1 thou/uL (1.6-8.1); BASOPHILS 0.1 %; EOSINOPHILS 2.4 %; HEMATOCRIT 33.5 % (42.0-52.0); LYMPHOCYTES 8.7 %; MCH 32.3 pg (26.0-34.0); MCHC 32.9 g/dL (28.0-37.0); MCV 98.2 fL (80.0-100.0); MONOCYTES 13.4 %; MPV 10.1 fl. (7.2-11.1); NUCLEATED RBCS 0 /100WBC; PLATELET COUNT* 173 thou/uL (150-400); POLYS 75.4 %; RBC 3.42 mil/uL (4.50-6.00); RDW-CV 14.5 % (10.5-14.5); WBC 10.7 thou/uL (4.0-11.0)
[2019-05-07 11:52] LABS: ALBUMIN 2.6 g/dL (3.4-5.0); CALCIUM 8.5 mg/dL (8.5-10.1); POTASSIUM 4.1 mmol/L (3.5-5.1); TOTAL BILIRUBIN 0.5 mg/dL (<0.1-1.0); TOTAL PROTEIN 6.4 g/dL (6.4-8.2)
[2019-05-07 12:07] VITALS: BP 131/52
[2019-05-07 17:05] VITALS: BP 120/48
--- NOTE | 2019-05-07 19:00 | NUR ---
ASSUMED PT CARE AT 0730. ASSESSMENT COMPLETED CHARTED. ABLE TO MAKE NEEDS KNOWN. UP WITH 1 WITH WALKER. NO C/O PAIN OR DISCOMFORT. PT STILL ON 6L AND STAYING 92-94%. NO C/O SOA. SITTING UP IN RECLINER MOST OF THE DAY. WILL CONTINUE TO MONITOR.
[2019-05-07 20:20] VITALS: BP 118/44
[2019-05-08] VITALS: BP 107/36
[2019-05-08 04:38] VITALS: BP 139/52
[2019-05-08 08:00] VITALS: BP 127/48
--- NOTE | 2019-05-08 08:12 | NUR ---
PT CARE ASSUMED AT 1930. SAT DROPPED, O2 TITRATED TO 10L HFNC. SOB AT REST. DENIES PAIN AND SOB. CALL LIGHT WITHIN REACH AND BED IN LOW POSITION. HOURLY ROUNDING DONE FOR PT SAFETY.
[2019-05-08 12:42] LABS: CALCIUM 8.5 mg/dL (8.5-10.1); CREATININE 1.8 mg/dL (0.6-1.3); POTASSIUM 4.2 mmol/L (3.5-5.1)
[2019-05-08 13:56] VITALS: BP 125/54
[2019-05-08 17:30] VITALS: BP 119/52
--- NOTE | 2019-05-08 19:00 | NUR ---
ASSUMED PT CARE AT 0730. ASSESSMENT COMPLETED CHARTED. ABLE TO MAKE NEEDS KNOWN. IN ISOLATION. UP WITH 1 ASSIST. RESTING IN BED MOST OF THE DAY. UP TO RECLINER FOR MEALS. CALL LIGHT WITHIN REACH. WILL CONTINUE TO MONITOR.
[2019-05-08 20:00] VITALS: BP 118/84; BP 125/45
[2019-05-09] VITALS: BP 125/45
[2019-05-09 06:00] VITALS: BP 120/53
[2019-05-09 08:00] VITALS: BP 128/81
--- NOTE | 2019-05-09 08:04 | NUR ---
ASSUMED CARE OF PT AFTER REPORT AT 1930. PT A&OX4. VSS. PHYSICAL ASSESSMENT COMPLETED AND CHARTED. PT ON O2 AT 4L NC. PT TRACING SR ON TELE. PT UP WITH 1 ASSIST TO BSC. PT DENIES ANY PAIN OR DISCOMFORT. MAINTAINED ON ENHANCED PRECAUTION. PT ABLE TO SLEEP WELL ON BED. CALL LIGHT WITHIN REACH.
--- NOTE | 2019-05-09 09:15 | NUR ---
Nutrition: Pt assessed for LOS. Admitted with SOA, CHF, pSBO. Wt: 231#. Stage I ulcer on Rt buttock. Albumin 2.6, prealb 22.6, BG WNL. Per notes, pt is up to chair for meals. GOALS: >75% of meals consumed, tolerated. Low nutrition risk at this time.
[2019-05-09 12:00] VITALS: BP 123/53
--- NOTE | 2019-05-09 19:00 | NUR ---
ASSUMED PT CARE AT 0730. ASSESSMENT COMPLETED CHARTED. ABLE TO MAKE NEEDS KNOWN. UP WITH ASSIST. ISOLATION STILL IN EFFECT, WAITING ON TESTS TO COME BACK. NO C/O PAIN OR DISCOMFORT. VSS. CALL LIGHT WITHIN REACH. WILL CONTINUE TO MONITOR.
[2019-05-09 20:00] VITALS: BP 134/56
[2019-05-10] VITALS: BP 128/48
--- NOTE | 2019-05-10 04:41 | NUR ---
ASSUMED CARE OF PT AFTER REPORT AT 1930. PT A&OX4. VSS. PHYSICAL ASSESSMENT COMPLETED AND CHARTED. PT ON O2 AT 3L NC. PT TRACING SR/SA ON TELE. PT UP WITH 1 ASSIST TO BSC. PT WITH FLANAGAN TO DEPENDENT DRAIN. PT DENIES ANY PAIN OR DISCOMFORT. MAINTAINED ON ENHANCED ISOLATION. FALL PRECAUTIONS IN PLACE. CALL LIGHT WITHIN REACH.
[2019-05-10 06:00] VITALS: BP 135/64
[2019-05-10 08:00] VITALS: BP 127/66
--- NOTE | 2019-05-10 08:07 | CON ---
[address] [address] CONSULTATION Name: ARIEL ARMENDARIZ Room: [address] IN M.R.#: [id number] Admission: 05/02/19 Attend Phys: Leonela Daniel Discharge: Date of : 32 Report #: [id number] THIS REPORT FOR: //name// cc: Tom Hagen John E. DO ~ THIS REPORT FOR: //name// CC: Tom Felix DATE OF SERVICE: 05/09/2019 INFECTIOUS DISEASE CONSULTATION ATTENDING PHYSICIAN: Franklin Felix DO REASON FOR EVALUATION: Possible Coronavirus infection. HISTORY OF PRESENT ILLNESS: Chart is reviewed and the patient is examined. This is an 88-year-old, who was admitted on 05/01 with complaints of progressive dyspnea, a bit of a cough, hoarseness, and generalized weakness. Evaluation suggested potential of congestive heart failure. He did have some infiltrates. There was question of pneumonitis as well. He does have notable history of reflux, cardiomyopathy, and atherosclerotic coronary artery disease. He has not apparently had any fever. He is empirically started on therapy with ceftriaxone. At this point, he is lucid, has some mild dyspnea, and denies significant gastrointestinal-related complaints. Appetite is somewhat decreased. ALLERGIES: None known. MEDICATIONS: Include ____, albuterol, aspirin, ascorbic acid, furosemide, guaifenesin, tamsulosin, enoxaparin, dutasteride, metoprolol, amiodarone, and ceftriaxone. PAST MEDICAL HISTORY: As described above; does have coronary artery disease, cardiomyopathy, history of congestive heart failure, atrial flutter, hypertension, history of arthritis, and reflux. SOCIAL HISTORY: Nonsmoker, no ethanol, no illicit drug use. FAMILY HISTORY: Noncontributory. REVIEW OF SYSTEMS: Otherwise unremarkable; denies any significant [place] [address] CONSULTATION Name: ARIEL ARMENDARIZ Room: [address] IN [facility]#: [id number] Admission: 05/02/19 Attend Phys: Leonela Daniel Discharge: Date of : 32 Report #: [id number] PHYSICAL EXAMINATION: GENERAL: He is alert, cooperative, and appropriate; appears chronically ill, undernourished; mqeq-sv-tumablwq distress. VITAL SIGNS: Temperature 98.1, pulse 60, respirations 19, blood pressure 123/53. SKIN: Warm and dry. No rashes. HEENT: He is on supplemental oxygen per nasal cannula. Extraocular muscles are intact. NECK: Supple. LUNGS: Few scattered coarse breath sounds. HEART: Irregular. I do not appreciate a murmur. ABDOMEN: Soft, obese, and nontender. There are no peritoneal signs. GENITOURINARY AND RECTAL: Deferred. IMAGING: Chest x-ray shows persistent bilateral perihilar and bibasilar infiltrations, partially consolidative, small bilateral pleural effusions, and cardiomegaly. LABORATORY DATA: Procalcitonin less than 0.5, proBNP 1502, prealbumin of 22.6. Electrolytes: Sodium 143, potassium 4.2, chloride 105, bicarbonate is 36, anion gap of 2, BUN and creatinine 35/1.8, and estimated GFR 36. Liver functions are otherwise unremarkable; albumin of 2.6, total protein 6.4, estimated GFR of 32. CBC: White count of 10.7, H and H 11.0 and 33.5, and platelets of 173. ASSESSMENT AND PLAN: Respiratory failure, likely component of pneumonitis, whether this is multifactorial. We will await results of the COVID testing. At this point, we will keep him in and recommend isolation. At this point, he is not overtly toxic. He has been afebrile. Perhaps if he has been exposed, he is on the side of improvement. We will monitor expectantly. At this point, I guess I would continue the ceftriaxone at least the next 24-48 hours to see how he does clinically. <ELECTRONICALLY SIGNED> By: Herberth Page MD 05/10/19 0807 1455 [id number] Page MD /nt
[2019-05-10] MEDS ORDERED: CEFDINIR300 MG PO (12:47)
[2019-05-10] MEDS ORDERED: AZITHROMYCIN 2250 MG PO (12:53)
[2019-05-10] MEDS ORDERED: FUROSEMIDE 40 M40 MG PO (13:31)
[2019-05-10] MEDS ORDERED: VITAMIN C1000 MG PO (13:33)
--- NOTE | 2019-05-10 14:04 | NUR ---
Pt discharging to home today, HH orders faxed to [facility].
--- NOTE | 2019-05-10 15:00 | NUR ---
ASSUMED PT CARE AT 0730. ASSESSMENT COMPLETED CHARTED. ABLE TO MAKE NEEDS KNOWN. SITTING UP IN CHAIR MOST OF THE DAY. DISCHARGE APPROVED. DISCHARGE PAPERWORK WENT OVER WITH PT. NO C/O PAIN OR DISCOMFORT. IV AND HEART MONITOR REMOVED. O2 TO 3L. TAKEN DOWN TO COADE CAR AT AROUND 1440 IN WHEELCHAIR WITH ALL BELONGINGS. NO COMMENTS, QUESTIONS, OR CONCERNS NOTED.
[2019-05-15 15:07] LABS: ADENOVIRUS Negative (Negative); INFLUENZA A Negative (Negative); INFLUENZA B Negative (Negative); METAPNEUMOVIRUS Negative (Negative); PARAINFLUENZA 1 Negative (Negative); PARAINFLUENZA 2 Negative (Negative); PARAINFLUENZA 3 Negative (Negative); RHINOVIRUS Negative (Negative); RSV A Negative (Negative); RSV B Negative (Negative)
== END 2019-05-10 14:48 | disposition home health service (06) | DRG 291 ==
LOC: M.ERS 21:11 → M.TBA-ER 22:54 → M.2W 22:54
PROVIDERS: Internal Medicine; Internal Medicine Cardiovascular Disease; Nurse Practitioner Family; Registered Nurse; ADMIT Internal Medicine
DX: I13.0 Hypertensive heart and chronic kidney disease with heart failure and stage 1 through stage 4 chronic kidney disease, or unspecified chronic kidney disease (principal); I50.33 Acute on chronic diastolic (congestive) heart failure; J15.9 Unspecified bacterial pneumonia; J96.20 Acute and chronic respiratory failure, unspecified whether with hypoxia or hypercapnia; N17.9 Acute kidney failure, unspecified; I48.92 Unspecified atrial flutter; I42.9 Cardiomyopathy, unspecified; K21.9 Gastro-esophageal reflux disease without esophagitis; M19.90 Unspecified osteoarthritis, unspecified site; I25.10 Atherosclerotic heart disease of native coronary artery without angina pectoris; J04.0 Acute laryngitis; J02.9 Acute pharyngitis, unspecified; R49.0 Dysphonia; R13.10 Dysphagia, unspecified; N18.3 Chronic kidney disease, stage 3 (moderate); J44.9 Chronic obstructive pulmonary disease, unspecified; N40.0 Benign prostatic hyperplasia without lower urinary tract symptoms; Z99.81 Dependence on supplemental oxygen; Z79.899 Other long term (current) drug therapy; Z79.2 Long term (current) use of antibiotics; Z79.82 Long term (current) use of aspirin; Z90.89 Acquired absence of other organs; I25.2 Old myocardial infarction; Z79.01 Long term (current) use of anticoagulants

== ENCOUNTER 2019-11-15 13:55 | Inpatient (IN) | payer OTHER, MEDICAID ==
[~2019-11-15] VITALS: Ht 185.4 cm; Wt 100.7 kg
[2019-11-15 13:55] VITALS: BP 134/59
[~2019-11-15 13:55] MED LIST changes: +AZITHROMYCIN 2250 MG PO; +CEFDINIR300 MG PO; +FUROSEMIDE 40 M40 MG PO; +VITAMIN C1000 MG PO
[2019-11-15 14:18] LABS: ABSOLUTE EOSINOPHILS 0.2 thou/uL (0.0-0.7); ABSOLUTE LYMPHOCYTES 1.7 thou/uL (0.8-5.3); ABSOLUTE MONOCYTES 0.8 thou/uL (0.0-1.2); ABSOLUTE NEUTROPHILS 4.9 thou/uL (1.6-8.1); BASOPHILS 0.6 %; EOSINOPHILS 2.8 %; HEMATOCRIT 32.8 % (42.0-52.0); HEMOGLOBIN 11.1 gm/dL (14.0-18.0); LYMPHOCYTES 22.4 %; MCH 32.6 pg (26.0-34.0); MCHC 33.7 g/dL (28.0-37.0); MCV 96.5 fL (80.0-100.0); MONOCYTES 10.6 %; MPV 9.3 fl. (7.2-11.1); NUCLEATED RBCS 0 /100WBC; PLATELET COUNT* 139 thou/uL (150-400); POLYS 63.6 %; RDW-CV 14.7 % (10.5-14.5); WBC 7.7 thou/uL (4.0-11.0)
[2019-11-15 14:28] LABS: CALCIUM 8.1 mg/dL (8.5-10.1); CREATININE 1.9 mg/dL (0.6-1.3); POTASSIUM 3.9 mmol/L (3.5-5.1)
[2019-11-15 14:33] LABS: TOTAL BILIRUBIN 0.5 mg/dL (<0.1-1.0); TOTAL PROTEIN 6.2 g/dL (6.4-8.2)
[2019-11-15 15:19] LABS: URINE BILIRUBIN NEGATIVE (Negative); URINE BLOOD NEGATIVE (Negative); URINE CLARITY CLEAR; URINE COLOR YELLOW; URINE GLUCOSE-RANDOM NEGATIVE (Negative); URINE KETONES NEGATIVE (Negative); URINE LEUKOCYTES-REFLEX NEGATIVE (Negative); URINE NITRITE-REFLEX NEGATIVE (Negative); URINE PROTEIN NEGATIVE (Negative); URINE UROBILINOGEN 0.2 E.U./dl (0.2-1.0)
[2019-11-15 16:37] VITALS: BP 116/46
[2019-11-15 16:45] VITALS: BP 151/47
--- NOTE | 2019-11-15 17:03 | EKG ---
[place] [address] ELECTROCARDIOGRAM REPORT Name: ARIEL ARMENDARIZ Room: [address] M.R.#: [id number] Admission: 11/15/19 Attend Phys: Franklin Felix Discharge: Date of : 32 Date of Service: 11/15/19 1428 Report #: [id number] THIS REPORT FOR: //name// [facility] ED Test Date: 2019-11-15 Test Time: 14:28:52 Pat Name: ARIEL ARMENDARIZ Department: Room: [facility] Gender: M Combination Building Inspector: CAMRYN : 1930 Requested By: David Jalloh Order Number: [id number] MD: Miguel Wills Measurements Intervals [place] Rate: 50 P: 0 [place]: 67 QRS: -7 QRSD: 131 T: 60 QT: 519 QTc: 474 Interpretive Statements Sinus rhythm Atrial premature complexes Incomplete right bundle branch block Compared to ECG 05/02/2019 23:00:18 Atrial premature complex(es) now present Short OH interval now present ST (T wave) deviation now present Electronically Signed On 11-15-2019 17:03:20 CDT by Miguel Wills [email or web address] <ELECTRONICALLY SIGNED> By: Miguel Wills MD, FACC 11/15/19 1703 1428 1428 Miguel Wills MD, FAC /EPI
[2019-11-15 20:00] VITALS: BP 113/46
[2019-11-16] VITALS: BP 121/40
[2019-11-16 04:00] VITALS: BP 119/38
[2019-11-16 08:00] VITALS: BP 107/45
[2019-11-16 11:08] LABS: CALCIUM 8.3 mg/dL (8.5-10.1); CREATININE 1.8 mg/dL (0.6-1.3); POTASSIUM 4.3 mmol/L (3.5-5.1)
[2019-11-16 11:12] LABS: ALBUMIN 2.9 g/dL (3.4-5.0); MAGNESIUM 2.1 mg/dL (1.8-2.4); TOTAL BILIRUBIN 0.5 mg/dL (<0.1-1.0); TOTAL PROTEIN 6.1 g/dL (6.4-8.2)
[2019-11-16 16:00] VITALS: BP 118/85
[2019-11-16 20:00] VITALS: BP 105/59
[2019-11-16 23:45] VITALS: BP 132/95
[2019-11-17 03:35] LABS: HEMATOCRIT 29.4 % (42.0-52.0); HEMOGLOBIN 9.7 gm/dL (14.0-18.0); MCH 31.9 pg (26.0-34.0); MCV 96.6 fL (80.0-100.0); MPV 9.5 fl. (7.2-11.1); RBC 3.04 mil/uL (4.50-6.00); RDW-CV 14.7 % (10.5-14.5); WBC 7.5 thou/uL (4.0-11.0)
[2019-11-17 03:56] LABS: ALBUMIN 2.7 g/dL (3.4-5.0); CREATININE 1.9 mg/dL (0.6-1.3); DIRECT BILIRUBIN 0.2 mg/dL (<0.1-0.3); MAGNESIUM 1.9 mg/dL (1.8-2.4); PHOSPHORUS* 3.8 mg/dL (2.5-4.9); POTASSIUM 3.9 mmol/L (3.5-5.1); TOTAL BILIRUBIN 0.5 mg/dL (<0.1-1.0); TOTAL PROTEIN 5.3 g/dL (6.4-8.2)
[2019-11-17 04:06] VITALS: BP 106/39
[2019-11-17 08:00] VITALS: BP 134/53
[2019-11-17 16:00] VITALS: BP 117/40
[2019-11-17 20:00] VITALS: BP 111/35
[2019-11-18 04:18] VITALS: BP 115/40; BP 122/38
[2019-11-18 04:30] LABS: HEMOGLOBIN 10.3 gm/dL (14.0-18.0); MCHC 33.1 g/dL (28.0-37.0); MCV 96.6 fL (80.0-100.0); MPV 9.8 fl. (7.2-11.1); RBC 3.21 mil/uL (4.50-6.00); RDW-CV 14.7 % (10.5-14.5); WBC 8.7 thou/uL (4.0-11.0)
[2019-11-18 04:41] LABS: ALBUMIN 2.8 g/dL (3.4-5.0); CALCIUM 8.2 mg/dL (8.5-10.1); CREATININE 2.1 mg/dL (0.6-1.3); MAGNESIUM 1.8 mg/dL (1.8-2.4); POTASSIUM 3.9 mmol/L (3.5-5.1); TOTAL BILIRUBIN 0.5 mg/dL (<0.1-1.0); TOTAL PROTEIN 5.7 g/dL (6.4-8.2)
[2019-11-18 08:00] VITALS: BP 129/54
[2019-11-18 13:01] VITALS: BP 118/40
[2019-11-18 16:12] VITALS: BP 136/60
[2019-11-18 19:40] VITALS: BP 136/68
[2019-11-19] MEDS ORDERED: FLAGYL500 M1 PO (07:29)
[2019-11-19] MEDS ORDERED: CIPRO500 MG PO (07:29)
[2019-11-19 09:18] VITALS: BP 124/80
[2019-11-19 12:29] VITALS: BP 133/55
--- NOTE | 2019-11-19 15:35 | CON ---
[address] [address] CONSULTATION Name: ARIEL ARMENDARIZ Room: [address] IN M.R.#: [id number] Admission: 11/16/19 Attend Phys: Leonela Daniel Discharge: Date of : 32 Report #: [id number] THIS REPORT FOR: //name// cc: Tom Hagen John E. DO ~ THIS REPORT FOR: //name// CC: Tom Felix DATE OF SERVICE: 11/16/2019 HISTORY OF PRESENT ILLNESS: This is a pleasant 89-year-old gentleman who was admitted to the hospital with lightheadedness, vertigo, nausea and vomiting. As a part of routine workup, the patient had an abdominal CAT scan performed and this demonstrated focal dilation of bile duct in the intrahepatic system, segment 8. The patient at this point denies any nausea, vomiting or diarrhea. Denies any prior episodes of jaundice. The patient denies any prior history of abdominal surgery. PAST MEDICAL HISTORY: The patient has a past medical history significant for CHF, BPH, and hyperlipidemia. PAST SURGICAL HISTORY: The patient has a history of appendectomy. SOCIAL HISTORY: The patient quit smoking in the past. Denies any alcohol or recreational drug use. FAMILY HISTORY: No family history of colonic malignancy. REVIEW OF SYSTEMS: Comprehensive 10-point review of systems is negative except for what was mentioned in the HPI. PHYSICAL EXAMINATION: VITAL SIGNS: Temperature 36.5, pulse rate 54, respirations 17, blood pressure 107/45, and pulse ox 94%. GENERAL: The patient is alert, awake, and oriented x 3. HEENT: Pupils are equal, round, reactive to light and accommodation. Mucous membranes are moist. There is no congestion. LUNGS: Clear to auscultation bilaterally. CARDIOVASCULAR: Rate and rhythm regular, S1, S2 present. ABDOMEN: Soft. There is no distention, guarding or rigidity. EXTREMITIES: Warm and well perfused. LABORATORY AND DIAGNOSTIC DATA: Hemoglobin 11.1, hematocrit 32.8, platelet count 139, and WBC count 7.7. Sodium 142, potassium , chloride 107, [place] [address] CONSULTATION Name: ARIEL ARMENDARIZ Room: [address] IN [facility]#: [id number] Admission: 11/16/19 Attend Phys: Leonela Daniel Discharge: Date of : 32 Report #: [id number] bicarbonate 34, BUN 13, and creatinine 1.8. Total bilirubin 0.5, AST 17, ALT 16, and alkaline phosphatase 79. MRCP and CT reviewed, both demonstrate focal dilation involving the anterior aspect of segment 8 of the liver. No masses noted. ASSESSMENT AND PLAN: A pleasant 89-year-old gentleman, incidentally detected intrahepatic biliary ductal dilation focal in segment 8, is presenting for evaluation. It appears that the patient has focal dilation of segment 8 intrahepatic biliary duct without obvious mass. I would recommend getting an outpatient EUS, ERCP with possible [employer]Gl[employer] for evaluation of this. We will set this up as an outpatient. <ELECTRONICALLY SIGNED> By: Seng Fair MD 11/19/19 1535 1452 [id number] Fair MD /nt
[2019-11-19 16:19] VITALS: BP 133/55
[2019-11-19 21:10] VITALS: BP 131/46
[2019-11-20 07:30] VITALS: BP 134/59
[2019-11-20 11:58] VITALS: BP 133/55
[2019-11-20 12:01] VITALS: BP 133/55
[2019-11-20 12:15] VITALS: BP 133/55
== END 2019-11-20 13:50 | DRG 371 ==
LOC: M.ERS 13:55 → M.TBA-ER 15:19 → M.2W 16:47 → M.ORTHSURG 11-18 18:55
PROVIDERS: Emergency Medicine Emergency Medical Services; Internal Medicine; Surgery; ADMIT Internal Medicine; ATTEND Internal Medicine
DX: A04.9 Bacterial intestinal infection, unspecified (principal); E43 Unspecified severe protein-calorie malnutrition; K83.1 Obstruction of bile duct; K55.1 Chronic vascular disorders of intestine; I50.32 Chronic diastolic (congestive) heart failure; I13.0 Hypertensive heart and chronic kidney disease with heart failure and stage 1 through stage 4 chronic kidney disease, or unspecified chronic kidney disease; I42.9 Cardiomyopathy, unspecified; N18.3 Chronic kidney disease, stage 3 (moderate); N40.0 Benign prostatic hyperplasia without lower urinary tract symptoms; E78.5 Hyperlipidemia, unspecified; M19.90 Unspecified osteoarthritis, unspecified site; J44.9 Chronic obstructive pulmonary disease, unspecified; I48.91 Unspecified atrial fibrillation; K83.9 Disease of biliary tract, unspecified; K21.9 Gastro-esophageal reflux disease without esophagitis; R53.81 Other malaise; Z20.828 Contact with and (suspected) exposure to other viral communicable diseases; Z68.29 Body mass index [BMI] 29.0-29.9, adult; Z90.49 Acquired absence of other specified parts of digestive tract; I25.2 Old myocardial infarction; Z79.82 Long term (current) use of aspirin; Z79.899 Other long term (current) drug therapy; Z87.891 Personal history of nicotine dependence

== ENCOUNTER 2021-01-22 11:41 | Inpatient (IN) | payer OTHER, MEDICAID ==
[~2021-01-22] VITALS: Ht 185.4 cm; Wt 95.5 kg
[~2021-01-22 11:41] MED LIST changes: +FLAGYL500 M1 PO
[2021-01-22 11:55] VITALS: BP 130/52
[2021-01-22 15:59] LABS: ABSOLUTE LYMPHOCYTES 1.6 thou/uL (0.8-5.3); ABSOLUTE MONOCYTES 1.4 thou/uL (0.0-1.2); BASOPHILS 0.5 %; EOSINOPHILS 0.4 %; HEMATOCRIT 33.7 % (42.0-52.0); HEMOGLOBIN 11.3 gm/dL (14.0-18.0); MCH 32.4 pg (26.0-34.0); MCHC 33.5 g/dL (28.0-37.0); MCV 96.8 fL (80.0-100.0); MONOCYTES 15.1 %; MPV 9.6 fl. (7.2-11.1); NUCLEATED RBCS 0 /100WBC; PLATELET COUNT* 138 thou/uL (150-400); RBC 3.48 mil/uL (4.50-6.00); RDW-CV 13.6 % (10.5-14.5); WBC 9.1 thou/uL (4.0-11.0)
[2021-01-22 16:18] LABS: ALBUMIN 2.9 g/dL (3.4-5.0); CALCIUM 8.5 mg/dL (8.5-10.1); CREATININE 2.5 mg/dL (0.6-1.3); POTASSIUM 3.5 mmol/L (3.5-5.1); TOTAL PROTEIN 6.3 g/dL (6.4-8.2)
[2021-01-22 16:32] LABS: TOTAL BILIRUBIN 0.7 mg/dL (<0.1-1.0)
[2021-01-22 19:55] VITALS: BP 143/60
[2021-01-22 20:15] VITALS: BP 149/52
[2021-01-22 22:03] VITALS: BP 149/52
[2021-01-23 08:00] VITALS: BP 138/60
[2021-01-23 08:39] LABS: ABSOLUTE EOSINOPHILS 0.1 thou/uL (0.0-0.7); ABSOLUTE LYMPHOCYTES 1.9 thou/uL (0.8-5.3); ABSOLUTE MONOCYTES 1.2 thou/uL (0.0-1.2); ABSOLUTE NEUTROPHILS 4.1 thou/uL (1.6-8.1); BASOPHILS 0.2 %; EOSINOPHILS 0.8 %; HEMOGLOBIN 10.7 gm/dL (14.0-18.0); LYMPHOCYTES 25.9 %; MCH 32.7 pg (26.0-34.0); MCHC 33.5 g/dL (28.0-37.0); MCV 97.6 fL (80.0-100.0); MONOCYTES 16.1 %; MPV 10.4 fl. (7.2-11.1); NUCLEATED RBCS 0 /100WBC; PLATELET COUNT* 129 thou/uL (150-400); RBC 3.28 mil/uL (4.50-6.00); RDW-CV 13.8 % (10.5-14.5); WBC 7.3 thou/uL (4.0-11.0)
[2021-01-23 09:04] LABS: ALBUMIN 2.5 g/dL (3.4-5.0); CALCIUM 8.3 mg/dL (8.5-10.1); CREATININE 2.1 mg/dL (0.6-1.3); POTASSIUM 3.4 mmol/L (3.5-5.1); TOTAL BILIRUBIN 0.6 mg/dL (<0.1-1.0); TOTAL PROTEIN 5.8 g/dL (6.4-8.2)
[2021-01-23 16:00] VITALS: BP 134/61
[2021-01-23 19:45] VITALS: BP 135/52
[2021-01-24 08:13] VITALS: BP 142/58
[2021-01-24 12:01] LABS: ALBUMIN 2.6 g/dL (3.4-5.0); CALCIUM 8.4 mg/dL (8.5-10.1); CREATININE 1.8 mg/dL (0.6-1.3); POTASSIUM 3.1 mmol/L (3.5-5.1); TOTAL BILIRUBIN 0.5 mg/dL (<0.1-1.0); TOTAL PROTEIN 6.2 g/dL (6.4-8.2)
[2021-01-24 12:04] LABS: ABSOLUTE LYMPHOCYTES 0.8 thou/uL (0.8-5.3); ABSOLUTE MONOCYTES 0.9 thou/uL (0.0-1.2); ABSOLUTE NEUTROPHILS 5.6 thou/uL (1.6-8.1); BASOPHILS 0.2 %; EOSINOPHILS 0.1 %; HEMATOCRIT 34.7 % (42.0-52.0); HEMOGLOBIN 11.2 gm/dL (14.0-18.0); LYMPHOCYTES 11.2 %; MCHC 32.3 g/dL (28.0-37.0); MONOCYTES 11.9 %; MPV 10.2 fl. (7.2-11.1); NUCLEATED RBCS 0 /100WBC; PLATELET COUNT* 143 thou/uL (150-400); POLYS 76.6 %; RBC 3.51 mil/uL (4.50-6.00); RDW-CV 14.1 % (10.5-14.5); WBC 7.4 thou/uL (4.0-11.0)
--- NOTE | 2021-01-24 15:10 | EKG ---
[place] [address] ELECTROCARDIOGRAM REPORT Name: SHARLENEFLOYDARIEL Room: [address] ADM IN .R.#: [id number] Admission: 01/22/21 Attend Phys: Riccardo Croft, Discharge: Date of : 32 Date of Service: 01/22/21 1600 Report #: [id number] THIS REPORT FOR: //name// [facility] ED Test Date: 2021-01-22 Test Time: 16:00:15 Pat Name: ARIEL ARMENDARIZ Department: Room: [facility] Gender: M Recovery Coach: ANAMIKA : 1930 Requested By: Familia Vang Order Number: [id number] MD: Miguel Wills Measurements Intervals [place] Rate: 57 P: [place]: QRS: -22 QRSD: 115 T: 77 QT: 497 QTc: 484 Interpretive Statements Sinus bradycardia Minimal ST depression, lateral leads Compared to ECG 11/15/2019 14:28:52 ST (T wave) deviation now present Incomplete right bundle-branch block no longer present Electronically Signed On 01-24-2021 15:10:09 GENERAL FOUNDRY WORKER by Miguel Wills [email or web address] <ELECTRONICALLY SIGNED> By: Miguel Wills MD, FACC 01/24/21 1510 1600 1600 Miguel Wills MD, FAC /EPI
[2021-01-24 16:06] VITALS: BP 159/53
[2021-01-24 20:00] VITALS: BP 163/64
[2021-01-25 02:51] LABS: CALCIUM 8.5 mg/dL (8.5-10.1); CREATININE 1.6 mg/dL (0.6-1.3); POTASSIUM 3.5 mmol/L (3.5-5.1)
[2021-01-25 03:07] LABS: HEMATOCRIT 34.8 % (42.0-52.0); HEMOGLOBIN 11.4 gm/dL (14.0-18.0); MCH 32.6 pg (26.0-34.0); MCHC 32.8 g/dL (28.0-37.0); MCV 99.4 fL (80.0-100.0); MPV 9.9 fl. (7.2-11.1); RBC 3.5 mil/uL (4.50-6.00)
[2021-01-25 07:40] VITALS: BP 148/52
[2021-01-25 12:49] LABS: HEMATOCRIT 35.3 % (42.0-52.0); HEMOGLOBIN 11.4 gm/dL (14.0-18.0); MCH 32.1 pg (26.0-34.0); MCHC 32.2 g/dL (28.0-37.0); MCV 99.8 fL (80.0-100.0); MPV 10.7 fl. (7.2-11.1); NUCLEATED RBCS 0 /100WBC; PLATELET COUNT* 142 thou/uL (150-400); RBC 3.54 mil/uL (4.50-6.00); RDW-CV 14.1 % (10.5-14.5); WBC 10.1 thou/uL (4.0-11.0)
[2021-01-25 13:17] LABS: ALBUMIN 2.5 g/dL (3.4-5.0); CALCIUM 8.7 mg/dL (8.5-10.1); CREATININE 1.6 mg/dL (0.6-1.3); POTASSIUM 3.4 mmol/L (3.5-5.1); TOTAL BILIRUBIN 0.4 mg/dL (<0.1-1.0); TOTAL PROTEIN 5.9 g/dL (6.4-8.2)
[2021-01-25 13:44] LABS: ABSOLUTE BASOPHILS 0.1 thou/uL (0.0-0.2); ABSOLUTE EOSINOPHILS 0.1 thou/uL (0.0-0.7); ABSOLUTE LYMPHOCYTES 1.3 thou/uL (0.8-5.3); ABSOLUTE MONOCYTES 1.5 thou/uL (0.0-1.2); ABSOLUTE NEUTROPHILS 7.1 thou/uL (1.6-8.1)
[2021-01-25 13:45] LABS: PLATELET ESTIMATE ADEQUATE
[2021-01-25 16:26] VITALS: BP 131/61
[2021-01-25 20:00] VITALS: BP 125/64
[2021-01-26 04:58] LABS: HEMATOCRIT 31.9 % (42.0-52.0); HEMOGLOBIN 10.6 gm/dL (14.0-18.0); MCH 32.1 pg (26.0-34.0); MCHC 33.2 g/dL (28.0-37.0); MCV 96.6 fL (80.0-100.0); MPV 9.6 fl. (7.2-11.1); RBC 3.3 mil/uL (4.50-6.00); RDW-CV 13.5 % (10.5-14.5); WBC 10.1 thou/uL (4.0-11.0)
[2021-01-26 05:01] LABS: CALCIUM 8.4 mg/dL (8.5-10.1); CREATININE 1.5 mg/dL (0.6-1.3); POTASSIUM 3.2 mmol/L (3.5-5.1)
[2021-01-26 08:00] VITALS: BP 140/83
--- NOTE | 2021-01-26 11:46 | EKG ---
[place] [address] ELECTROCARDIOGRAM REPORT Name: ARIEL ARMENDARIZ Ramone Room: [address] ADM IN M.R.#: [id number] Admission: 01/22/21 Attend Phys: Riccardo Croft, Discharge: Date of : 32 Date of Service: 01/26/21 0928 Report #: [id number] THIS REPORT FOR: //name// [facility] Test Date: 2021-01-26 Test Time: 09:28:18 Pat Name: ARIEL ARMENDARIZ Department: Room: [address] Gender: M [employer] Flatbed Driver: VEE : 1930 Requested By: Franklin Felix Order Number: [id number] Orlin MD: Sergo Bird Measurements Intervals [place] Rate: 102 P: [place]: QRS: -30 QRSD: 100 T: 145 QT: 357 QTc: 466 Interpretive Statements Atrial fibrillation Left axis deviation RSR' in V1 or V2, probably normal variant Repol abnrm suggests ischemia, anterolateral Baseline wander in lead(s) V4 Compared to ECG 01/22/2021 RSR' in V1 or V2 now present Early repolarization now present Possible ischemia now present Sinus bradycardia no longer present Electronically Signed On 01-26-2021 11:46:16 AIRCRAFT FUELER by Sergo Bird [email or web address] <ELECTRONICALLY SIGNED> By: Sergo Bird MD, [facility] 01/26/21 1146 7 7 Sergo Bird MD, [facility] /EPI
[2021-01-26 11:50] VITALS: BP 154/104
[2021-01-26 12:18] LABS: ABSOLUTE LYMPHOCYTES 0.9 thou/uL (0.8-5.3); ABSOLUTE MONOCYTES 1.2 thou/uL (0.0-1.2); ABSOLUTE NEUTROPHILS 7.8 thou/uL (1.6-8.1); BASOPHILS 0.4 %; EOSINOPHILS 0.4 %; HEMATOCRIT 33.8 % (42.0-52.0); HEMOGLOBIN 11.2 gm/dL (14.0-18.0); LYMPHOCYTES 8.6 %; MCH 31.9 pg (26.0-34.0); MCV 96.5 fL (80.0-100.0); MONOCYTES 12.3 %; MPV 9.1 fl. (7.2-11.1); NUCLEATED RBCS 0 /100WBC; PLATELET COUNT* 140 thou/uL (150-400); POLYS 78.3 %; RDW-CV 13.3 % (10.5-14.5)
[2021-01-26 12:36] LABS: ALBUMIN 2.4 g/dL (3.4-5.0); CALCIUM 8.2 mg/dL (8.5-10.1); CREATININE 1.6 mg/dL (0.6-1.3); POTASSIUM 3.7 mmol/L (3.5-5.1); TOTAL BILIRUBIN 0.4 mg/dL (<0.1-1.0); TOTAL PROTEIN 5.4 g/dL (6.4-8.2)
--- NOTE | 2021-01-26 17:10 | 2DMMODE ---
[place] [address] 2 D/M-MODE ECHOCARDIOGRAM Name: ARIEL ARMENDARIZ Room: [address] IN [place].R.#: [id number] Admission: 01/22/21 Attend Phys: Riccardo Croft, Discharge: Date of : 32 Date of Service: 01/26/21 1710 Report #: [id number] THIS REPORT FOR: cc: Tom Hagen John E. DO Blick,Sergo Salazar MD [facility] ~ APPROVED REPORT Study performed: 01/26/2021 15:03:29 EXAM: Comprehensive 2D, Doppler, and color-flow Echocardiogram Patient Location: In-Patient Room #: 313 Status: routine BSA: 2.20 HR: 82 bpm BP: 154/104 mmHg Rhythm: Atrial Fibrillation Other Information Study Quality: Good Indications Atrial Fibrillation Dyspnea 2D Dimensions IVSd: 12.37 (7-11mm) LVOT Diam: 21.15 (18-24mm) LVDd: 49.38 mm PWd: 12.75 (7-11mm) Ascending Ao: 33.12 (22-36mm) LVDs: 41.87 (25-40mm) Aortic Root: 36.88 mm Volumes Left Atrial Volume (Systole) LA ESV Index: 35.60 mL/m2 Aortic Valve AoV Peak Mariano.: 1.27 m/s AO Peak Gr.: 6.46 mmHg LVOT Max P.64 mmHg AO Mean Gr.: 4.05 mmHg LVOT Mean P.64 mmHg LVOT Max V: 0.95 m/s AO V2 VTI: 24.52 cm LVOT Mean V: 0.58 m/s MARNI (VTI): 2.41 cm2 LVOT V1 VTI: 16.81 [place] [address] 2 D/M-MODE ECHOCARDIOGRAM Name: ARIEL ARMENDARIZ Room: [address] IN [facility].#: [id number] Admission: 01/22/21 Attend Phys: Riccardo Croft, Discharge: Date of : 32 Date of Service: 01/26/21 1710 Report #: [id number] TDI Medial E' Mariano.: 0.12 m/s Lateral E' Mariano.: 0.16 m/s Pulmonary Valve PV Peak Mariano.: 0.83 m/s PV Peak Gr.: 2.76 mmHg Left Ventricle The left ventricle is normal size. There is normal LV segmental wall motion. Mild concentric left ventricular hypertrophy. Left ventricular systolic function is borderline. LVEF is 50-55%. This study is not technically sufficient to allow evaluation of the LV diastolic function due to atrial fibrillation. Right Ventricle The right ventricle is normal size. The right ventricular systolic function is normal. Atria Left atrium is mildly dilated. The right atrium size is normal. Aortic Valve Mild aortic valve sclerosis. No aortic regurgitation is present. There is no aortic valvular stenosis. Mitral Valve The mitral valve is normal in structure. Trace mitral regurgitation. No evidence of mitral valve stenosis. Tricuspid Valve The tricuspid valve is normal in structure. Unable to assess PA pressure. Trace tricuspid regurgitation. Pulmonic Valve The pulmonary valve is normal in structure. There is no pulmonic valvular regurgitation. Great Vessels The aortic root is normal in size. IVC is normal in size and collapses >50% with inspiration. Pericardium There is [place] [address] 2 D/M-MODE ECHOCARDIOGRAM Name: ARIEL ARMENDARIZ Room: [address] IN .R.#: [id number] Admission: 01/22/21 Attend Phys: Riccardo Croft, Discharge: Date of : 32 Date of Service: 01/26/211709 Report #: [id number] <Conclusion> Mild concentric left ventricular hypertrophy. Left ventricular systolic function is borderline. Left atrium is mildly dilated. Trace mitral regurgitation. <ELECTRONICALLY SIGNED> By: Sergo Bird MD, [facility] 01/26/211709 09 1710 Sergo Bird MD, FACC /INF
[2021-01-26 21:00] VITALS: BP 125/60
[2021-01-27 07:50] VITALS: BP 138/57
[2021-01-27 09:34] VITALS: BP 138/57
[2021-01-27] MEDS ORDERED: MIRALAX17 GM PO (10:06)
== END 2021-01-27 16:42 | DRG 388 ==
LOC: M.ERS 11:41 → M.3W 17:51 → M.TBA-ER 17:51 → M.3W 20:13
PROVIDERS: Emergency Medicine; Internal Medicine; Surgery; ADMIT Internal Medicine; ATTEND Internal Medicine
PROC: 0DH67UZ Insertion of Feeding Device into Stomach, Via Natural or Artificial Opening (ICD-10-PCS; principal; 2021-01-22)
DX: K56.609 Unspecified intestinal obstruction, unspecified as to partial versus complete obstruction (principal); J69.0 Pneumonitis due to inhalation of food and vomit; N17.0 Acute kidney failure with tubular necrosis; I42.9 Cardiomyopathy, unspecified; N18.4 Chronic kidney disease, stage 4 (severe); E87.1 Hypo-osmolality and hyponatremia; I13.0 Hypertensive heart and chronic kidney disease with heart failure and stage 1 through stage 4 chronic kidney disease, or unspecified chronic kidney disease; I50.9 Heart failure, unspecified; Z60.2 Problems related to living alone; J44.9 Chronic obstructive pulmonary disease, unspecified; E87.6 Hypokalemia; I48.91 Unspecified atrial fibrillation; M19.90 Unspecified osteoarthritis, unspecified site; Z90.49 Acquired absence of other specified parts of digestive tract; I25.2 Old myocardial infarction; Z87.891 Personal history of nicotine dependence; Z80.0 Family history of malignant neoplasm of digestive organs; Z79.82 Long term (current) use of aspirin; Z79.899 Other long term (current) drug therapy; Z20.822 Contact with and (suspected) exposure to COVID-19

== ENCOUNTER 2021-02-04 16:45 | Inpatient (IN) | payer OTHER, MEDICAID ==
[~2021-02-04] VITALS: Ht 185.4 cm; Wt 87.2 kg
[2021-02-04] MEDS ORDERED: DULCOLAX10 MG RECTAL (16:50)
[2021-02-04] MEDS ORDERED: COLACE100 MG PO (16:51)
[2021-02-04] MEDS ORDERED: OMEPRAZOLE 20 M20 M1 PO (16:51)
[2021-02-04] MEDS ORDERED: MILK OF MA400 MG/5 M PO (16:51)
[2021-02-04 16:53] VITALS: BP 110/41
[2021-02-04 17:50] LABS: ABSOLUTE EOSINOPHILS 0.1 thou/uL (0.0-0.7); ABSOLUTE MONOCYTES 1.2 thou/uL (0.0-1.2); ABSOLUTE NEUTROPHILS 6.5 thou/uL (1.6-8.1); BASOPHILS 0.3 %; EOSINOPHILS 0.7 %; HEMATOCRIT 30.3 % (42.0-52.0); LYMPHOCYTES 11.1 %; MCH 32.4 pg (26.0-34.0); MCHC 32.9 g/dL (28.0-37.0); MCV 98.5 fL (80.0-100.0); MONOCYTES 13.5 %; MPV 9.1 fl. (7.2-11.1); NUCLEATED RBCS 0 /100WBC; PLATELET COUNT* 192 thou/uL (150-400); POLYS 74.4 %; RBC 3.08 mil/uL (4.50-6.00); RDW-CV 13.6 % (10.5-14.5); WBC 8.8 thou/uL (4.0-11.0)
[2021-02-04 18:05] LABS: CALCIUM 7.9 mg/dL (8.5-10.1); CREATININE 8.7 mg/dL (0.6-1.3); POTASSIUM 4.1 mmol/L (3.5-5.1)
[2021-02-04 18:18] LABS: ALBUMIN 2.4 g/dL (3.4-5.0); TOTAL BILIRUBIN 0.4 mg/dL (<0.1-1.0); TOTAL PROTEIN 5.7 g/dL (6.4-8.2)
[2021-02-04 22:00] VITALS: BP 98/60
[2021-02-05 01:30] VITALS: BP 100/70
[2021-02-05 08:00] VITALS: BP 116/50
--- NOTE | 2021-02-05 11:48 | EKG ---
[place] [address] ELECTROCARDIOGRAM REPORT Name: ARIEL ARMENDARIZ Room: [address] ADM IN M.R.#: [id number] Admission: 02/04/21 Attend Phys: Mona Arcos Discharge: Date of : 32 Date of Service: 02/04/21 1732 Report #: [id number] THIS REPORT FOR: //name// [facility] ED Test Date: 2021-02-04 Test Time: 17:32:31 Pat Name: ARIEL ARMENDARIZ Department: Room: [facility] Gender: M Pharmacist In Charge Owner: EMILEE : 1930 Requested By: Delgado Malik Order Number: [id number] MD: Tom Steinberg Measurements Intervals [place] Rate: 84 P: [place]: QRS: -25 QRSD: 105 T: 103 QT: 406 QTc: 480 Interpretive Statements Atrial fibrillation Borderline left axis deviation Borderline repolarization abnormality Borderline prolonged QT interval Compared to ECG 01/26/2021 09:28:18 Possible ischemia no longer present Electronically Signed On 02-05-2021 11:47:54 LINUX ARCHITECT by Tom Steinberg [email or web address] <ELECTRONICALLY SIGNED> By: Tom Steinberg MD, [facility] 02/05/21 1147 1732 173 Tom Steinberg MD, [facility] /EPI
[2021-02-05 13:53] LABS: CALCIUM 8.1 mg/dL (8.5-10.1); CREATININE 9.2 mg/dL (0.6-1.3); POTASSIUM 4.6 mmol/L (3.5-5.1)
--- NOTE | 2021-02-05 15:46 | NUR ---
CM ASSESSMENT: PT IS A RE-ADMIT THAT RECENTLY D/C'D TO SNF AT [facility] ON 01/27/21. CM SPOKE TO PT'S NIECE MICHAEL TO COMPLETE CM ASSESSMENT. MICHAEL INFORMS THAT THE PT ADMITTED TO THIS HOSPITAL FROM [facility]. MICHAEL INFORMS OF DESIRE FOR PT TO GO TO A DIFFERENT SNF AT D/C. HOWEVER PT MAY NOT HAVE ENOUGH SNF DAYS LEFT TO RETURN TO SNF, AND MAY NEED TO PURSUE LTC AT D/C. PT HAS MEDICAID INSURANCE AND THIS WILL BE HELPFUL SHOULD THE PT NEED LTC PLACEMENT AT D/C. PRIOR TO THE PT'S PREVIOUS ADMIT THE PT RESIDES AT HOME ALONE IN A SENIOR APT. PT USED A WALKER FOR MOBILITY, AND ALSO HAD HOME O2. PT HAS A HX OF HH WITH [facility]. CM WILL REMAIN AVAILABLE TO ASSIST AND FOLLOW WITH D/C PLANNING NEEDS.
[2021-02-05 16:00] VITALS: BP 121/59
--- NOTE | 2021-02-05 19:44 | NUR ---
PT RESTING ON BED WITH IV FLUIDS INFUSING. PT HAS HAD NO URINE OUT PUT. VSS AFEBRILE. BLADDER SCAN HAD NO VOLUME IN IT. WILL CONTINUE TO MONITOR PLAN OF CARE.
[2021-02-05 20:00] VITALS: BP 121/59
[2021-02-06 01:21] LABS: CALCIUM 7.7 mg/dL (8.5-10.1); CREATININE 9.8 mg/dL (0.6-1.3); POTASSIUM 4.3 mmol/L (3.5-5.1)
[2021-02-06 04:16] LABS: URINE BILIRUBIN NEGATIVE (Negative); URINE BLOOD NEGATIVE (Negative); URINE CLARITY CLEAR; URINE COLOR YELLOW; URINE GLUCOSE-RANDOM NEGATIVE (Negative); URINE KETONES NEGATIVE (Negative); URINE LEUKOCYTES NEGATIVE (Negative); URINE NITRITE NEGATIVE (Negative); URINE PROTEIN NEGATIVE (Negative); URINE SPECIFIC GRAVITY >= 1.030 (1.005-1.030); URINE UROBILINOGEN 0.2 E.U./dl (0.2-1.0)
--- NOTE | 2021-02-06 07:30 | NUR ---
PATIENT HAS SLEPT THROUGHOUT MOST OF NIGHT. VSS ON 3L 02 VIA NASAL CANNULA. PATIENTS OXYGEN SATURATION DECREASES UPON EXERTION AND WHEN MOVING AND REPOSITIONING IN BED. PATIENT HAS BEEN INCONTINENT OF BOWEL DURING THE NIGHT AND RUTHIE CARE PERFORMED AND COMPLETE BED CHANGE DONE. PATIENT NOT URINATING ADEQUATELY. PATIENT BLADDER SCANNED AND SHOWS ONLY 15CC OF URINE. NEPHROLOGY NOTIFIED. NOTIFIED OF RECENT LAB RESULTS ON PATIENT. NEW ORDERS GIVEN. FLANAGAN INSERTED. IV IN LEFT HAND-NS DECREASED TO 50ML/HR PER UA COLLECTED AND SENT TO LAB. REPORT GIVEN TO DAY SHIFT RN. RN TOLD IN REPORT TO CALL [facility]A THIS AM TO GET CONSENT FOR DIALYSIS PER DR. NORRIS. FALL PRECAUTIONS IN PLACE AND HOURLY ROUNDS MADE. WILL CONTINUE WITH PLAN OF CARE AND NURSING TO MONITOR.
[2021-02-06 08:00] VITALS: BP 143/44
--- NOTE | 2021-02-06 13:17 | NUR ---
REFERRAL PACKET FAXED TO [facility]. AWAITING APPROVAL. CM TO CONTINUE TO FOLLOW FOR SAFE D/C PLANNING NEEDS.
--- NOTE | 2021-02-06 16:23 | NUR ---
CM FOLLOWUP PT NOT YET MED CLEAR AND PENDING INSERTION OF DIALYSIS LINE. WHEN MED CLEAR, PT SEEKING SKILLED SERVICES AT [facility] ([phone]). AUTH PENDING. CM TO FOLLOW.
[2021-02-06 16:39] VITALS: BP 127/52
--- NOTE | 2021-02-06 18:22 | NUR ---
PT HAS WENT DOWN FOR TEMPORARY DIALYSIS CATH PLACEMENT IN IR. CATH PLACED. PT NOW WAITING FOR PATIENT INFORMATION COORDINATOR TO SHOW UP TO DO DIALYSIS ON HIM THIS PM. VSS AFEBRILE. PT UP TO A CHAIR THIS AFTERNOON THEN BACK TO BED. PT DID REALLY GOOD GETTING IN AND OUT OF BED. PT TOLERATED HIS BREAKFAST AND ATE MORE OF HIS SUPPER THIS PM. PT WILL HAVE DIALYSIS THIS PM AND WILL HAVE IT AGAIN ON TUESDAY. WILL CONTINUE TO MONITOR PLAN OF CARE.
[2021-02-06 19:25] VITALS: BP 129/62
[2021-02-06 23:40] VITALS: BP 100/46
--- NOTE | 2021-02-07 04:13 | NUR ---
PT A&OX4, FORGETFUL. VSS ON 4L O2 NC. IV SALINE LOCKED. DIALYSIS COMPLETED WITH 1.5L OUT. URINARY CATHETER IN PLACE, PT REPOSITIONED Q2H WITH SOME REPOSITIONINGS REFUSED. NO CO PAIN OR DISCOMFORT. PT SLEEPING WELL, WILL CONTINUE TO MONITOR.
[2021-02-07 04:41] LABS: ALBUMIN 2.1 g/dL (3.4-5.0); CALCIUM 7.5 mg/dL (8.5-10.1); PHOSPHORUS* 6.5 mg/dL (2.5-4.9); POTASSIUM 4.2 mmol/L (3.5-5.1)
[2021-02-07 04:42] LABS: CREATININE 7.6 mg/dL (0.6-1.3)
[2021-02-07 04:45] LABS: HEMATOCRIT 27.9 % (42.0-52.0); HEMOGLOBIN 9.1 gm/dL (14.0-18.0); MCH 31.9 pg (26.0-34.0); MCHC 32.5 g/dL (28.0-37.0); MCV 98.2 fL (80.0-100.0); MPV 8.9 fl. (7.2-11.1); RBC 2.84 mil/uL (4.50-6.00); RDW-CV 13.7 % (10.5-14.5); WBC 8.9 thou/uL (4.0-11.0)
[2021-02-07 07:36] LABS: HEPATITIS B SURFACE AG Negative (Negative)
[2021-02-07 08:18] VITALS: BP 114/53
[2021-02-07 16:42] VITALS: BP 121/57
[2021-02-07 20:00] VITALS: BP 142/60
[2021-02-07 23:06] LABS: IgA 272 mg/dL (61-437); IgG 799 mg/dL (603-1613); IgM 52 mg/dL (15-143)
--- NOTE | 2021-02-08 05:39 | NUR ---
Oriented x 3 and forgetful. Vitals are stable, O2 sat is 92-94% on 4L n/c. He had 2 large, loose, incontinent stools. Which he did say that couldn't tell when it was going to happen and asked for immodium. I did send out a You Call MD. Dr Arcos did give orders for questran packet and started at about midnight. Dialysis cath to rt jugular, dressing is dry and intact. Patient has been turned frequently but he does somehow end up on his back and refuses turns also. His skin looks good, he does have redness to buttocks, barrier cream was applied. Both lower extremeties are discolored and have bumps on them, pedal pulses are 1+. He appears to be sleeping well at this time.
[2021-02-08 08:00] VITALS: BP 115/51
[2021-02-08 09:39] LABS: ALBUMIN 2.3 g/dL (3.4-5.0); PHOSPHORUS* 5.7 mg/dL (2.5-4.9); POTASSIUM 4.3 mmol/L (3.5-5.1)
[2021-02-08 09:40] LABS: CREATININE 5.7 mg/dL (0.6-1.3)
[2021-02-08 15:53] VITALS: BP 112/53
--- NOTE | 2021-02-08 17:43 | NUR ---
PATIENT RESTING IN BED. 93% ON 4L OXYGEN. IV TO RIGHT HAND, PATENT. TEMPORARY RIGHT JUGULAR DIALYSIS. NO QUESTIONS OR CONCERNS VOICED.
[2021-02-08 20:00] VITALS: BP 118/66
--- NOTE | 2021-02-09 04:59 | NUR ---
ASSUMED CARE AT 1930. ALERT AND ORIENTED. CAN BE FORGETFUL. O2 4L NC. RIGHT JUGULAR DIALYSIS CATHETER IN PLACE. SALINE LOCK TO LEFT HAND. FLANAGAN CATH DD DARK NOEMY URINE. OLIGURIA. DENIED ANY PAIN. REPOSITIONED OVERNIGHT. CALL LIGHT IN REACH AND BED ALARM ON.
[2021-02-09 05:14] LABS: ALBUMIN 2.1 g/dL (3.4-5.0); PHOSPHORUS* 6.6 mg/dL (2.5-4.9); POTASSIUM 4.6 mmol/L (3.5-5.1)
[2021-02-09 05:20] LABS: CREATININE 6.7 mg/dL (0.6-1.3)
[2021-02-09 08:15] VITALS: BP 95/42
[2021-02-09 10:07] LABS: GLOMERULR BASEM MEMBRN AB 3 units (0-20)
[2021-02-09 12:59] VITALS: BP 95/42
[2021-02-09 14:07] LABS: LAMBDA FREE LIGHT CHAINS 64.2 mg/L (5.7-26.3)
--- NOTE | 2021-02-09 14:19 | NUR ---
PLAN OF CARE: PHYSICIAN INFORMS THAT PT IS NOT MEDICALLY STABLE AT THIS TIME. PT WILL NEED OT F/T TO ASSIST WITH D/C PLANNING FOR SNF. [employer] INFORMS THAT INSURANCE AUTH (02/09 TO 02/11) HAS BEEN OBTAINED FOR THE PT FOR [facility]. HOWEVER THIS IS ON-HOLD AT THIS TIME IS HAS NOT BEEN DEERMINED IF THE PT WILL NEED OUTPATIENT HD AND A TUNNELED DIALYSIS CATH. CM WILL REMAIN AVAILABLE TO ASSIST AND FOLLOW NEEDED.
[2021-02-09 16:42] VITALS: BP 86/47
--- NOTE | 2021-02-09 18:09 | NUR ---
PATIENT WAS DICSHARGED TO PREVIOUS FACILITY ([facility]). PATIENT LEFT VIA STRETCHER BY AMBULANCE. PATIENT WAS ON 2L OF OXYGEN.
[2021-02-09 19:07] LABS: GLOBULIN TOTAL 2.4 g/dL (2.2-3.9); M-SPIKE Not Observed g/dL (Not Observed)
[2021-02-09 20:00] VITALS: BP 123/40
[2021-02-09 21:05] LABS: ANA INTERPRETATION Negative (())
[2021-02-10 00:37] VITALS: BP 109/47
--- NOTE | 2021-02-10 04:52 | NUR ---
ASSUMED CARE AT 1920. ALERT AND ORIENTED. PLEASANT. O2 4L NC. RIGHT JUGULAR DIALYSIS CATH. FLANAGAN CATHETER DD WITH NOEMY URINE. VERY MINIMAL URINE OUTPUT. SALINE LOCK LEFT HAND. PT REPOSITIONED OVERNIGHT. CALL LIGHT IN REACH AND BED ALARM ON.
[2021-02-10 05:17] LABS: CALCIUM 7.9 mg/dL (8.5-10.1); POTASSIUM 4.4 mmol/L (3.5-5.1); TOTAL BILIRUBIN 0.4 mg/dL (<0.1-1.0); TOTAL PROTEIN 5.2 g/dL (6.4-8.2)
[2021-02-10 05:29] LABS: CREATININE 4.4 mg/dL (0.6-1.3)
[2021-02-10 09:00] VITALS: BP 144/69
[2021-02-10 09:47] LABS: ABSOLUTE BASOPHILS 0.1 thou/uL (0.0-0.2); ABSOLUTE EOSINOPHILS 0.2 thou/uL (0.0-0.7); ABSOLUTE LYMPHOCYTES 1.1 thou/uL (0.8-5.3); ABSOLUTE MONOCYTES 1.2 thou/uL (0.0-1.2); BASOPHILS 1.2 %; EOSINOPHILS 3.2 %; HEMOGLOBIN 8.5 gm/dL (14.0-18.0); LYMPHOCYTES 16.3 %; MCH 31.6 pg (26.0-34.0); MCHC 32.8 g/dL (28.0-37.0); MCV 96.5 fL (80.0-100.0); MONOCYTES 17.7 %; MPV 8.3 fl. (7.2-11.1); NUCLEATED RBCS 0 /100WBC; PLATELET COUNT* 170 thou/uL (150-400); POLYS 61.6 %; RBC 2.69 mil/uL (4.50-6.00); RDW-CV 13.7 % (10.5-14.5); WBC 6.5 thou/uL (4.0-11.0)
--- NOTE | 2021-02-10 10:02 | NUR ---
PLAN OF CARE: PLAN REMAINS FOR THE PT TO D/C TO SNF AT [facility] WHEN MEDICALLY STABLE. [facility] APPROVED INSURANCE AUTH FOR SNF (02/09 TO 02/11). NEPHROLOGY CONSULTED AND CONTINUES TO FOLLOW PT. CM WILL REMAIN AVAILABLE TO ASSIST AND FOLLOW NEEDED.
[2021-02-10 12:26] VITALS: BP 126/57
[2021-02-10 17:09] VITALS: BP 92/52
[2021-02-10 20:34] VITALS: BP 107/65
[2021-02-11 02:19] VITALS: BP 105/51
[2021-02-11 04:00] VITALS: BP 103/51
[2021-02-11 04:26] LABS: ABSOLUTE EOSINOPHILS 0.2 thou/uL (0.0-0.7); ABSOLUTE LYMPHOCYTES 1.4 thou/uL (0.8-5.3); ABSOLUTE MONOCYTES 1.2 thou/uL (0.0-1.2); BASOPHILS 0.7 %; EOSINOPHILS 3.3 %; HEMATOCRIT 25.8 % (42.0-52.0); HEMOGLOBIN 8.5 gm/dL (14.0-18.0); LYMPHOCYTES 20.5 %; MCH 32.2 pg (26.0-34.0); MCHC 32.8 g/dL (28.0-37.0); MCV 98.2 fL (80.0-100.0); MONOCYTES 17.1 %; MPV 8.4 fl. (7.2-11.1); NUCLEATED RBCS 0 /100WBC; PLATELET COUNT* 174 thou/uL (150-400); POLYS 58.4 %; RBC 2.63 mil/uL (4.50-6.00); RDW-CV 13.9 % (10.5-14.5); WBC 6.8 thou/uL (4.0-11.0)
[2021-02-11 04:39] LABS: PREALBUMIN 15.5 mg/dL (18.0-35.7)
[2021-02-11 04:45] LABS: ALBUMIN 2.1 g/dL (3.4-5.0); POTASSIUM 4.9 mmol/L (3.5-5.1); TOTAL BILIRUBIN 0.5 mg/dL (<0.1-1.0); TOTAL PROTEIN 5.1 g/dL (6.4-8.2)
[2021-02-11 05:00] LABS: CREATININE 5.6 mg/dL (0.6-1.3)
[2021-02-11 07:50] VITALS: BP 102/40
--- NOTE | 2021-02-11 08:23 | NUR ---
PT IS ABLE TO COMMUNICATE HIS NEEDS TO STAFF WITH MINOR DIFFICULTY; HE IS CONFUSED AT TIMES AND CAN BE DIFFICULT TO UNDERSTAND. HE HAS DENIED THE NEED FOR PAIN MEDICATION UP TO THIS TIME. FLANAGAN HAS BEEN PATENT UP TO 0700 THIS MORNING. HE IS CURRENTLY A HEMODIALYSIS PT AND MAY BE RECEIVING DIALYSIS TODAY; PENDING MD ORDER; HE HAS A TEMPORARY DIALYSIS ACCESS LINE.
--- NOTE | 2021-02-11 15:14 | NUR ---
PLAN OF CARE: PLAN REMAINS FOR THE PT TO D/C TO SNF AT [facility] WHEN MEDICALLY STABLE. INSURANCE AUTH WAS APPROVED THROUGH 02/12 AND PT MUST D/C TOMORROW. HOWEVER IF PT DOES NOT D/C TOMORROW NEW AUTH MUST BE OBTAINED. CM ASKED PT/OT TO F/U WITH THE PT TO PROVIDE UPDATED PT/OT NOTES TO ASSIST WITH NEW AUTH. NEPHROLOGY CONTINUES TO FOLLOW. CM WILL NEED TO ASSIST WITH ARRANGEMENT OF OUTPATIENT HD IF IT IS NEEDE AT D/C, BUT THIS HAS NOT BEEN CONFIRMED AT THIS TIME. CM WILL REMAIN AVAILABLE TO ASSIST AND FOLLOW NEEDED.
[2021-02-11 17:03] VITALS: BP 116/58
--- NOTE | 2021-02-11 17:08 | NUR ---
PATIENT TURNED Q2. FLANAGAN DRANING SMALL AMOUNTS OF NOEMY URINE. PATIENT HAD DIALYSIS THIS AM, 1L REMOVED. NO BM NOTED THIS SHIFT, PASSING FLATUS. IV SL. M/S PATIENT.
[2021-02-11 20:24] VITALS: BP 117/63
--- NOTE | 2021-02-12 05:18 | NUR ---
PT IS ABLE TO COMMUNICATE HIS NEEDS TO STAFF WITH MINOR DIFFICULTY; HE IS CONFUSED OFTEN AND FORGETFUL AT TIMES-USUALLY WHEN WAKING UP. HE HAS DENIED THE NEED FOR PAIN MEDICATION UP TO THIS TIME. HE HAS A TEMPORARY DIALYSIS ACCESS CATH AND HAS RECEIVED HEMODIALYSIS MDs HAVE ORDERED IT. FLANAGAN HAS BEEN PATENT UP TO THIS TIME.
[2021-02-12 05:39] VITALS: BP 100/45
[2021-02-12 06:03] LABS: ABSOLUTE EOSINOPHILS 0.2 thou/uL (0.0-0.7); ABSOLUTE NEUTROPHILS 3.8 thou/uL (1.6-8.1); BASOPHILS 0.8 %; EOSINOPHILS 3.3 %; HEMATOCRIT 26.9 % (42.0-52.0); HEMOGLOBIN 8.8 gm/dL (14.0-18.0); LYMPHOCYTES 16.5 %; MCH 32.2 pg (26.0-34.0); MCHC 32.7 g/dL (28.0-37.0); MCV 98.6 fL (80.0-100.0); MONOCYTES 16.1 %; MPV 8.6 fl. (7.2-11.1); NUCLEATED RBCS 0 /100WBC; PLATELET COUNT* 169 thou/uL (150-400); POLYS 63.3 %; RBC 2.72 mil/uL (4.50-6.00); RDW-CV 13.8 % (10.5-14.5); WBC 5.9 thou/uL (4.0-11.0)
[2021-02-12 06:11] LABS: ALBUMIN 2.1 g/dL (3.4-5.0); CALCIUM 7.8 mg/dL (8.5-10.1); POTASSIUM 4.2 mmol/L (3.5-5.1); TOTAL BILIRUBIN 0.5 mg/dL (<0.1-1.0); TOTAL PROTEIN 5.3 g/dL (6.4-8.2)
[2021-02-12 06:22] LABS: CREATININE 3.9 mg/dL (0.6-1.3)
[2021-02-12 06:35] LABS: PREALBUMIN 15.9 mg/dL (18.0-35.7)
[2021-02-12 08:17] VITALS: BP 106/42
[2021-02-12 12:05] VITALS: BP 103/51
[2021-02-12 16:00] VITALS: BP 107/53
--- NOTE | 2021-02-12 18:39 | NUR ---
PT UP WITH GAIT BELT AND 2X asst. PT IS ON 4L 02. PT HAS LT HAND IV AND RT IJ. PT HAS A FLANAGAN. PER DR. SMITH HOLD ASA TILL 02-18-21 PT IS HAVING KIDNEY BIOPSY ON TuesdayJan. PT IS IN BED WITH CALL LIGHT IN REACH. FALL PRECAUTIONS IN PLACE.
[2021-02-12 20:15] VITALS: BP 98/42
[2021-02-13 00:57] VITALS: BP 93/40
--- NOTE | 2021-02-13 04:31 | NUR ---
PT A&O X 4. ON 4L BY NC WITH BUBBLER. BP SOFT. NO C/O PAIN. RT TEMP DIALYSIS LINE, FLANAGAN IN PLACE. CALL LIGHT WITHIN REACH. WILL CONTINUET TO MONITOR.
[2021-02-13 07:59] VITALS: BP 111/41
[2021-02-13 09:00] LABS: ABSOLUTE BASOPHILS 0.1 thou/uL (0.0-0.2); ABSOLUTE EOSINOPHILS 0.2 thou/uL (0.0-0.7); ABSOLUTE LYMPHOCYTES 1.1 thou/uL (0.8-5.3); ABSOLUTE MONOCYTES 1.1 thou/uL (0.0-1.2); ABSOLUTE NEUTROPHILS 4.5 thou/uL (1.6-8.1); BASOPHILS 1.1 %; EOSINOPHILS 2.8 %; HEMATOCRIT 26.4 % (42.0-52.0); HEMOGLOBIN 8.8 gm/dL (14.0-18.0); LYMPHOCYTES 16.5 %; MCH 31.8 pg (26.0-34.0); MCHC 33.5 g/dL (28.0-37.0); MCV 94.9 fL (80.0-100.0); MONOCYTES 15.5 %; MPV 8.7 fl. (7.2-11.1); NUCLEATED RBCS 0 /100WBC; PLATELET COUNT* 173 thou/uL (150-400); POLYS 64.1 %; RBC 2.78 mil/uL (4.50-6.00); RDW-CV 13.6 % (10.5-14.5)
[2021-02-13 09:13] LABS: ALBUMIN 2.2 g/dL (3.4-5.0); CALCIUM 7.9 mg/dL (8.5-10.1); POTASSIUM 4.6 mmol/L (3.5-5.1); TOTAL BILIRUBIN 0.5 mg/dL (<0.1-1.0); TOTAL PROTEIN 5.5 g/dL (6.4-8.2)
--- NOTE | 2021-02-13 09:33 | NUR ---
NUTRITION: PT ADMITTED WITH [facility]. SEEN FOR LOS. PT HAS TEMPORARY DIALYSIS LINE. 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 WT IN USUAL RANGE, 219#. GROUND DIET ORDERED. METABOLIC ENCEPHALOPATHY INPROVING. LABS: BUN 25, CR 5, GFR 11, ALB 2.2, PREALB 15.9. MEDS: HEPARIN, S. BOULARDII. NO NUTRIITON NEEDS AT THIS TIME. CONSIDER LOW RISK.
[2021-02-13 12:01] VITALS: BP 111/52
--- NOTE | 2021-02-13 13:49 | NUR ---
PLAN OF CARE: PLAN REMAINS FOR THE PT TO D/C TO [facility] WHEN MEDICALLY STABLE. HOWEVER PT WILL NEED NEW SNF AUTH. PT/OT F/U NOTES WILL BE NEEDED TO ASSIST WITH THIS. CM WILL REMAIN AVAILABLE TO ASSIST AND FOLLOW NEEDED.
[2021-02-13 19:50] VITALS: BP 108/51
--- NOTE | 2021-02-14 04:01 | NUR ---
PT A&O X 4. ON 4L. NO C/O PAIN. MEDS GIVEN ORDERED. PT REPOSITIONED Q2H. FLANAGAN IN PLACE. CALL LIGHT WITHIN REACH. WILL CONTINUE TO MONITOR.
[2021-02-14 05:30] VITALS: BP 102/52
[2021-02-14 08:00] VITALS: BP 91/42
[2021-02-14 17:25] VITALS: BP 114/44
[2021-02-14 19:20] VITALS: BP 97/43
--- NOTE | 2021-02-14 19:20 | NUR ---
AWAKENEND FOR VITAL SIGNS AND REASSESSMENT. FLANAGAN TO DEPENDENT DRAINAGE WITH NOEMY URINE. RIGHT IJ APPEARS INTACT. ASSISTED WITH REPOSITIONING SLIGHTLY PER REQUEST. CALL LIGHT WITHIN REACH.
--- NOTE | 2021-02-15 04:46 | NUR ---
RESTED ON/OFF WITH 02 NASAL CANNULA AT 4 LITERS. DISORIENTED TO TIME. ASKING FOR HIS PILLS AT 0430. REORIENTED WITHOUT DIFFICULTY. HOURLY ROUNDING IN PROGRESS.
[2021-02-15 08:09] LABS: ABSOLUTE BASOPHILS 0.1 thou/uL (0.0-0.2); ABSOLUTE EOSINOPHILS 0.2 thou/uL (0.0-0.7); ABSOLUTE LYMPHOCYTES 1.2 thou/uL (0.8-5.3); ABSOLUTE MONOCYTES 1.2 thou/uL (0.0-1.2); ABSOLUTE NEUTROPHILS 4.6 thou/uL (1.6-8.1); BASOPHILS 1.1 %; EOSINOPHILS 2.1 %; HEMATOCRIT 25.1 % (42.0-52.0); HEMOGLOBIN 8.2 gm/dL (14.0-18.0); LYMPHOCYTES 16.6 %; MCH 31.5 pg (26.0-34.0); MCHC 32.9 g/dL (28.0-37.0); MCV 95.8 fL (80.0-100.0); MONOCYTES 16.7 %; MPV 8.9 fl. (7.2-11.1); NUCLEATED RBCS 0 /100WBC; PLATELET COUNT* 155 thou/uL (150-400); POLYS 63.5 %; RBC 2.62 mil/uL (4.50-6.00); RDW-CV 13.9 % (10.5-14.5); WBC 7.2 thou/uL (4.0-11.0)
[2021-02-15 08:21] LABS: ALBUMIN 2.1 g/dL (3.4-5.0); CALCIUM 7.9 mg/dL (8.5-10.1); CREATININE 4.6 mg/dL (0.6-1.3); POTASSIUM 4.6 mmol/L (3.5-5.1); TOTAL BILIRUBIN 0.4 mg/dL (<0.1-1.0); TOTAL PROTEIN 5.1 g/dL (6.4-8.2)
[2021-02-15 08:32] VITALS: BP 101/41
[2021-02-15 14:19] VITALS: BP 101/41
[2021-02-15 15:57] VITALS: BP 117/55
[2021-02-15 20:00] VITALS: BP 112/53
--- NOTE | 2021-02-16 04:44 | NUR ---
ASSUMED PT CARE AT 1930. PT ALERT AND ORIENTED X3. S/L TO RIGHT HAND. ON 4L 02 PER NC. RIGHT IJ INTACT. LFANAGAN TO DD DRAINING NOEMY URINE. INCONTINENT OF STOOL X1. PT CALLS OUT FREQUENTLY FOR REPOSITIONING. CALL LIGHT IN REACH. HOURLY ROUNDING IN PROGRESS, WILL CONTINUE TO MONITOR.
[2021-02-16 05:08] LABS: ABSOLUTE EOSINOPHILS 0.1 thou/uL (0.0-0.7); ABSOLUTE MONOCYTES 1.2 thou/uL (0.0-1.2); ABSOLUTE NEUTROPHILS 4.9 thou/uL (1.6-8.1); BASOPHILS 0.6 %; EOSINOPHILS 1.1 %; HEMATOCRIT 25.1 % (42.0-52.0); HEMOGLOBIN 8.2 gm/dL (14.0-18.0); LYMPHOCYTES 14.1 %; MCHC 32.9 g/dL (28.0-37.0); MCV 97.3 fL (80.0-100.0); MONOCYTES 16.5 %; NUCLEATED RBCS 0 /100WBC; PLATELET COUNT* 153 thou/uL (150-400); POLYS 67.7 %; RBC 2.57 mil/uL (4.50-6.00); RDW-CV 14.1 % (10.5-14.5); WBC 7.3 thou/uL (4.0-11.0)
[2021-02-16 05:29] LABS: CALCIUM 7.9 mg/dL (8.5-10.1); CREATININE 5.5 mg/dL (0.6-1.3); POTASSIUM 4.9 mmol/L (3.5-5.1)
--- NOTE | 2021-02-16 09:46 | NUR ---
PLAN OF CARE: PLAN REMAINS FOR THE PT TO D/C TO THE [facility] WHEN MEDICALLY STABLE. NEPHROLOGY CONSULTED AND D/C PLAN FOR OUTPATIENT HD TBD. CM WILL REMAIN AVAILABLE TO ASSIST WITH D/C PLANNING NEEDED.
[2021-02-16 12:29] VITALS: BP 86/38
[2021-02-16 12:45] VITALS: BP 115/56
[2021-02-16 16:00] VITALS: BP 98/56
[2021-02-17] VITALS: BP 128/58
--- NOTE | 2021-02-17 05:26 | NUR ---
PATIENT SLEPT WELL DURING THIS SHIFT. PT ALERT/ORIENTED TO PERSON/PLACE. PT WITH DIALYSIS CATH TO RT IJ. SALLINE LOCKED IN LT HAND. PT IS M/S STATUS. P ON O2 @ 4 LITERS PER NC. PT UP WITH 1-2. PT Q2H PER PROTOCAL. FREQUENTLY USED ITEMS AND CALL LIGHT WITHIN REACH. SIDERAILS UPX3 AND BED ALARM ON. WILL CONTINUE TO MONITOR.
[2021-02-17 08:00] VITALS: BP 98/39
[2021-02-17 08:14] LABS: HEMATOCRIT 26.3 % (42.0-52.0); HEMOGLOBIN 8.6 gm/dL (14.0-18.0); MCH 31.2 pg (26.0-34.0); MCHC 32.7 g/dL (28.0-37.0); MCV 95.4 fL (80.0-100.0); MPV 8.8 fl. (7.2-11.1); NUCLEATED RBCS 0 /100WBC; PLATELET COUNT* 130 thou/uL (150-400); RBC 2.75 mil/uL (4.50-6.00); RDW-CV 13.6 % (10.5-14.5); WBC 6.7 thou/uL (4.0-11.0)
[2021-02-17 08:34] LABS: ALBUMIN 2.1 g/dL (3.4-5.0); CALCIUM 7.9 mg/dL (8.5-10.1); POTASSIUM 4.7 mmol/L (3.5-5.1); TOTAL BILIRUBIN 0.5 mg/dL (<0.1-1.0); TOTAL PROTEIN 5.4 g/dL (6.4-8.2)
[2021-02-17 08:35] LABS: CREATININE 3.7 mg/dL (0.6-1.3)
[2021-02-17 08:45] LABS: ABSOLUTE EOSINOPHILS 0.1 thou/uL (0.0-0.7); ABSOLUTE LYMPHOCYTES 1.5 thou/uL (0.8-5.3); ABSOLUTE MONOCYTES 0.6 thou/uL (0.0-1.2); ABSOLUTE NEUTROPHILS 4.5 thou/uL (1.6-8.1); ATYPICAL LYMPHS 1 %
[2021-02-17 08:46] LABS: PLATELET ESTIMATE ADEQUATE
[2021-02-17 16:14] VITALS: BP 97/49
[2021-02-17 20:00] VITALS: BP 104/42
[2021-02-18 00:43] VITALS: BP 108/53
[2021-02-18 05:01] LABS: ABSOLUTE EOSINOPHILS 0.1 thou/uL (0.0-0.7); ABSOLUTE LYMPHOCYTES 1.1 thou/uL (0.8-5.3); ABSOLUTE MONOCYTES 1.3 thou/uL (0.0-1.2); ABSOLUTE NEUTROPHILS 3.9 thou/uL (1.6-8.1); BASOPHILS 0.7 %; EOSINOPHILS 1.3 %; HEMATOCRIT 24.8 % (42.0-52.0); HEMOGLOBIN 8.2 gm/dL (14.0-18.0); LYMPHOCYTES 17.1 %; MCH 31.8 pg (26.0-34.0); MCHC 33.1 g/dL (28.0-37.0); MCV 95.9 fL (80.0-100.0); MONOCYTES 20.4 %; MPV 9.3 fl. (7.2-11.1); NUCLEATED RBCS 0 /100WBC; PLATELET COUNT* 124 thou/uL (150-400); POLYS 60.5 %; RBC 2.59 mil/uL (4.50-6.00); RDW-CV 13.8 % (10.5-14.5); WBC 6.4 thou/uL (4.0-11.0)
[2021-02-18 05:33] LABS: CREATININE 4.5 mg/dL (0.6-1.3); POTASSIUM 4.8 mmol/L (3.5-5.1); TOTAL BILIRUBIN 0.5 mg/dL (<0.1-1.0); TOTAL PROTEIN 5.3 g/dL (6.4-8.2)
[2021-02-18 06:01] LABS: % SATURATION 14 % (20-39); IRON 24 ug/dL (50-175)
[2021-02-18 10:58] VITALS: BP 108/56
--- NOTE | 2021-02-18 12:04 | NUR ---
TALKED WITH NURSE LEAH AT 1204 PM TODAY REGARDING PROCEDURE 02/19/[address] CARDOZO INJ. HEPARIN IS TO BE HELD TONIGHT AND TOMORROW MORNING DOSE.
--- NOTE | 2021-02-18 13:42 | NUR ---
PLAN OF CARE: PLAN REMAINS FOR THE PT [facility] WHEN MEDICALLY STABLE. CLINICAL INFO ALSO [facility]ED TO [facility] TO ASSIST WITH OBTAINING AN OUTPATIENT DIAYSIS CHAIR TIME FOR THE PT. PLAN FOR THE PT TO HAVE TUNNELED DIALYSIS CATH PLACED Tuesday02/19/21. CM WILL REMAIN AVAILABLE TO ASSIST AND FOLLOW NEEDED.
[2021-02-18 16:26] VITALS: BP 124/52
--- NOTE | 2021-02-18 18:31 | NUR ---
PT UP WITH GAIT BELT AND 1-2 ASST. PT HAS IJ IN RIGHT NECK. PT HAS IV IN LT HAND. PT HAS FLANAGAN 175 OUT. PT HAVING BIOSPY ON Tuesday02-19-21 AND WILL BE NPO AFTER MID NIGHT. PT IS ON 4L 02. PT IS RESTING IN BED WITH CALL LIGHT IN REACH AND FALL PRECAUTIONS IN PLACE.
[2021-02-18 20:00] VITALS: BP 142/52
[2021-02-19] VITALS: BP 130/56
[2021-02-19 04:14] LABS: ABSOLUTE LYMPHOCYTES 1.2 thou/uL (0.8-5.3); ABSOLUTE MONOCYTES 1.3 thou/uL (0.0-1.2); ABSOLUTE NEUTROPHILS 3.4 thou/uL (1.6-8.1); BASOPHILS 0.8 %; EOSINOPHILS 0.7 %; HEMATOCRIT 24.3 % (42.0-52.0); LYMPHOCYTES 19.7 %; MCH 31.5 pg (26.0-34.0); MCV 95.4 fL (80.0-100.0); MONOCYTES 22.2 %; MPV 9.4 fl. (7.2-11.1); NUCLEATED RBCS 0 /100WBC; PLATELET COUNT* 94 thou/uL (150-400); POLYS 56.6 %; RBC 2.55 mil/uL (4.50-6.00); RDW-CV 13.8 % (10.5-14.5)
[2021-02-19 04:47] LABS: ALBUMIN 1.8 g/dL (3.4-5.0); CALCIUM 7.8 mg/dL (8.5-10.1); PHOSPHORUS* 3.8 mg/dL (2.5-4.9); POTASSIUM 4.4 mmol/L (3.5-5.1); TOTAL BILIRUBIN 0.5 mg/dL (<0.1-1.0); TOTAL PROTEIN 5.1 g/dL (6.4-8.2)
[2021-02-19 04:58] LABS: CREATININE 2.9 mg/dL (0.6-1.3)
--- NOTE | 2021-02-19 05:12 | NUR ---
ASSUMED CARE AT 1930. PATIENT RESTED IN BED. ASSISTED WITH TURNS. MADE NPO AFTER MN FOR PROCEDURES THIS AM. DIALYSIS PORT IN RT IJ DRESSING INTACT. FLANAGAN DRAINING NOEMY URINE. HEPARIN ON HOLD PER ORDER, SEE MAR. SALINE LOCK TO LT HAND INTACT. O2 4L/NC. HOURLY ROUNDS CONTINUE. BED ALARM ON. CALL LITE IN REACH.
[2021-02-19 07:06] VITALS: BP 130/56
[2021-02-19 08:05] VITALS: BP 123/53
--- NOTE | 2021-02-19 10:17 | NUR ---
PLAN OF CARE: PLAN REMAINS FOR THE PT TO D/C TO SNF AT [facility] WHEN MEDICALLY STABLE, AND CHAIR TIME CONFIRMED WITH [facility] OUTPATIENT DIALYSIS, [facility] IS NOT ABLE TO PROVIDE IN-HOUSE DIALYSIS AT THIS TIME. THIS IS ALL PENDING PT BEING MEDICALLY STABLE, TUNNELED CATH PLACEMENT, LIVER BIOPSY, AND OBTAINING SNF INSURANCE AUTH. CM WILL REMAIN AVAILABLE TO ASSIST AND FOLLOW NEEDED.
[2021-02-19] MEDS ORDERED: NEPHRO-VITE TA0.8 MG PO (12:58)
[2021-02-19] MEDS ORDERED: FLORASTOR250 MG PO (12:58)
[2021-02-19] MEDS ORDERED: EPOGEN2000 UNIT/ SUBQ (12:58)
[2021-02-19 16:00] VITALS: BP 108/52
--- NOTE | 2021-02-19 17:49 | NUR ---
PT HEAL WB ON LT FOOT. PT HAS RT IJ IN NECK. PT IS ON RM. PT HAD A LOW TEMP THIS AM 100.4 PT WAS GIVEN TYL. DR. VILLA NOTIFIED, UA SENT TO LAB. PT TEMP AT 10:00 WAS DOWN TO 99.0 . PT WENT FOR A IR ARTERIOGRAM AT 10:30 AM. PT RETURNED AT 1530. PT HAD NO COMPLAINTS OF PAIN, HAS DRESSING TO RT GROIN. DRESSING IS CLEAN AND DRY. PT HAS NS RUNNING AT 100. PT IS SITTING UP EATING AFTER LAYING FLAT FOR 2 HOURS. NO COMPLAINTS, PT REFUSED METFORMIN STATES IT MAKES HER SICK. PT HAS CALL LIGHT IN REACH AND FALL PRECATUIONS IN PLACE.
--- NOTE | 2021-02-19 17:58 | NUR ---
PT IS ON 4L 02 . PT HAS RT IJ IN NECK. PT HAD BIOPSY OF KIDNEY AND IJ PLACED . PT IS DOING WELL NO COMPLAINTS OF PAIN. PT HAS FLANAGAN. PT WAITING TO BE DC'D AFTER CASE REY WORKS ON DC. PT IS RESTING WITH CALL LIGHT IN REACH AND FALL PRECAUTIONS IN PLACE.
[2021-02-19 20:00] VITALS: BP 102/50
[2021-02-20 00:37] VITALS: BP 95/47
[2021-02-20 04:38] LABS: ABSOLUTE EOSINOPHILS 0.1 thou/uL (0.0-0.7); ABSOLUTE LYMPHOCYTES 1.2 thou/uL (0.8-5.3); ABSOLUTE MONOCYTES 1.3 thou/uL (0.0-1.2); BASOPHILS 0.7 %; HEMATOCRIT 25.6 % (42.0-52.0); HEMOGLOBIN 8.5 gm/dL (14.0-18.0); MCH 31.9 pg (26.0-34.0); MCHC 33.2 g/dL (28.0-37.0); MCV 95.9 fL (80.0-100.0); NUCLEATED RBCS 0 /100WBC; PLATELET COUNT* 111 thou/uL (150-400); POLYS 60.3 %; RBC 2.67 mil/uL (4.50-6.00); RDW-CV 14.1 % (10.5-14.5); WBC 6.6 thou/uL (4.0-11.0)
[2021-02-20 05:05] LABS: ALBUMIN 1.9 g/dL (3.4-5.0); CALCIUM 8.1 mg/dL (8.5-10.1); PHOSPHORUS* 4.3 mg/dL (2.5-4.9); POTASSIUM 4.6 mmol/L (3.5-5.1); TOTAL BILIRUBIN 0.5 mg/dL (<0.1-1.0); TOTAL PROTEIN 5.4 g/dL (6.4-8.2)
--- NOTE | 2021-02-20 05:46 | NUR ---
ASSUMED PT CARE AT 1930. PT ALERT AND ORIENTED, POLITE AND COOPERATIVE WITH CARES. ON 4L 02 PER NC. RIGHT IJ TUNNELED DIALYSIS CATHER. S/L TO LEFT HAND. FLANAGAN TO DD DRAINING NOEMY URINE. NO C/O PAIN. ASSISTED WITH TURNS. CALL LIGHT IN REACH, BED ALARM ON FOR SAFETY. HOURLY ROUNDING IN PROGRESS, WILL CONTINUE TO MONITOR.
[2021-02-20 08:00] VITALS: BP 130/68
--- NOTE | 2021-02-20 11:55 | NUR ---
PLAN OF CARE: PLAN FOR THIS PT TO D/C TO SNF AT [facility]. HOWEVER PT'S D/C IS CURRENTLY PENDING OUTPATIENT HD ARRANGEMENTS. [facility] ADMISSIONS INFORMS THAT THE PT HAS BEEN 'FINANCIALLY CLEARED, BUT 'MEDICAL CLEARANCE REMAINS PENDING AT THIS TIME, DUE TO NOT HAVING ESRD DIAGNOSIS'. CM INFORM NURSING AND PHYSICIAN OF THE ABOVE INFO. [facility] CM IS UNABLE TO SECURE OUTPATIENT HD CHAIR TIME WITHOUT QUALIFYING DIAGNOSIS. CM WILL REMAIN AVAILABLE TO ASSIST AND FOLLOW NEEDED.
--- NOTE | 2021-02-20 19:41 | NUR ---
PT WENT TO DIALYSIS AT 1300. PT REFUSED BREAKFAST AND LUNCH AND JUST EATS SNACKS, ICE CREAM, CHIPS. PT HAS RECEIVED IRON INFUSION POST DIALYSIS . VSS AFEBRILE. DILAYSIS TOOK OFF ONE LITER OF FLUID. WILL CONTINUE TO MONITOR PLAN OF CARE.
[2021-02-20 20:23] VITALS: BP 115/70
[2021-02-21 01:36] VITALS: BP 100/42
--- NOTE | 2021-02-21 04:32 | NUR ---
PT A&OX4, VSS ON 3L O2 NC, IV SALINE LOCKED, MED/SURG STATUS, PT REPOSTIONED Q2H, URINARY CATHETER IN PLACE. NO CO PAIN OR DISCOMFORT. PT SLEEPING WELL, WILL CONTINUE TO MONITOR.
[2021-02-21 08:00] VITALS: BP 96/42
[2021-02-21 09:11] LABS: ABSOLUTE EOSINOPHILS 0.1 thou/uL (0.0-0.7); ABSOLUTE LYMPHOCYTES 1.3 thou/uL (0.8-5.3); ABSOLUTE MONOCYTES 1.4 thou/uL (0.0-1.2); BASOPHILS 0.7 %; EOSINOPHILS 1.5 %; HEMOGLOBIN 8.6 gm/dL (14.0-18.0); LYMPHOCYTES 18.7 %; MCH 31.9 pg (26.0-34.0); MCHC 33.2 g/dL (28.0-37.0); MPV 8.9 fl. (7.2-11.1); NUCLEATED RBCS 0 /100WBC; PLATELET COUNT* 125 thou/uL (150-400); POLYS 59.1 %; RBC 2.71 mil/uL (4.50-6.00); RDW-CV 13.7 % (10.5-14.5); WBC 6.8 thou/uL (4.0-11.0)
[2021-02-21 09:30] LABS: ALBUMIN 2.1 g/dL (3.4-5.0); CALCIUM 8.2 mg/dL (8.5-10.1); PHOSPHORUS* 2.7 mg/dL (2.5-4.9); TOTAL BILIRUBIN 0.5 mg/dL (<0.1-1.0); TOTAL PROTEIN 5.6 g/dL (6.4-8.2)
[2021-02-21 09:38] LABS: CREATININE 2.7 mg/dL (0.6-1.3)
[2021-02-21 12:00] VITALS: BP 107/50
[2021-02-21 16:00] VITALS: BP 114/54
--- NOTE | 2021-02-21 19:35 | NUR ---
NO ACUTE CHANGES THROUGHOUT SHIFT. REFER TO CHARTING. DENIES ANY PAIN OR SHORTNESS OF BREATH. FLANAGAN TO DEPENDENT DRAINAGE. ON 3L NC SAT MID 90'S. MED SURG STATUS. AM ASSESSMENT CHARTED. MEDICATIONS PER MAR. HOURLY ROUNDING OBSERVED. BED IN LOW POSITION. CALL LIGHT WITHIN REACH. WILL CONTINUE PLAN OF CARE.
[2021-02-21 21:24] VITALS: BP 104/40
[2021-02-22 02:22] VITALS: BP 104/60
[2021-02-22 08:00] VITALS: BP 109/50
[2021-02-22 08:37] LABS: ABSOLUTE BASOPHILS 0.1 thou/uL (0.0-0.2); ABSOLUTE EOSINOPHILS 0.2 thou/uL (0.0-0.7); ABSOLUTE LYMPHOCYTES 1.5 thou/uL (0.8-5.3); ABSOLUTE MONOCYTES 1.2 thou/uL (0.0-1.2); ABSOLUTE NEUTROPHILS 3.3 thou/uL (1.6-8.1); BASOPHILS 0.8 %; EOSINOPHILS 2.6 %; HEMATOCRIT 25.7 % (42.0-52.0); HEMOGLOBIN 8.3 gm/dL (14.0-18.0); LYMPHOCYTES 23.6 %; MCH 31.9 pg (26.0-34.0); MCHC 32.5 g/dL (28.0-37.0); MCV 98.4 fL (80.0-100.0); MONOCYTES 19.9 %; MPV 8.8 fl. (7.2-11.1); NUCLEATED RBCS 0 /100WBC; PLATELET COUNT* 136 thou/uL (150-400); POLYS 53.1 %; RBC 2.61 mil/uL (4.50-6.00); RDW-CV 14.3 % (10.5-14.5); WBC 6.2 thou/uL (4.0-11.0)
[2021-02-22 08:56] LABS: ALBUMIN 1.9 g/dL (3.4-5.0); CALCIUM 8.1 mg/dL (8.5-10.1); POTASSIUM 3.9 mmol/L (3.5-5.1); TOTAL BILIRUBIN 0.5 mg/dL (<0.1-1.0); TOTAL PROTEIN 5.2 g/dL (6.4-8.2)
[2021-02-22 09:00] LABS: CREATININE 3.7 mg/dL (0.6-1.3)
[2021-02-22 12:45] VITALS: BP 123/82
--- NOTE | 2021-02-22 17:00 | NUR ---
Patient is alert and oriented x 4, and is able to make his needs and wants known. Patient has been up to the chair with PT this morning for meal then assisted x 2 with jordyn lift back into bed. Appetite is fair at meals. Patient has voiced no complaints of pain or discomfort throughout the day. Ricardo catheter patent to dependent drainage with clear yellow urine noted to drainage bag. Medications given per MD orders. Will continue with the plan of care.
--- NOTE | 2021-02-22 17:50 | NUR ---
THIS RN AGREES WITH THE CHARTING COMPLETED BY ROSCOE BENAVIDES ON 02/22/21.
[2021-02-22 20:37] VITALS: BP 91/35
[2021-02-23 01:25] VITALS: BP 100/42
--- NOTE | 2021-02-23 04:24 | NUR ---
PT A&OX4, VSS ON 3L O2 NC, MED/SURG STATUS, IV SALINE LOCKED, URINARY CATHETER IN PLACE, REPOSITIONED Q2H. NO CO PAIN OR DISCOMFORT. PT SLEEPING WELL, WILL CONTINUE TO MONITOR.
[2021-02-23 05:49] LABS: HEMATOCRIT 25.1 % (42.0-52.0); HEMOGLOBIN 8.1 gm/dL (14.0-18.0); MCH 31.7 pg (26.0-34.0); MCHC 32.2 g/dL (28.0-37.0); MCV 98.4 fL (80.0-100.0); MPV 8.4 fl. (7.2-11.1); NUCLEATED RBCS 0 /100WBC; PLATELET COUNT* 148 thou/uL (150-400); RBC 2.55 mil/uL (4.50-6.00); RDW-CV 14.4 % (10.5-14.5)
[2021-02-23 06:08] LABS: CALCIUM 8.1 mg/dL (8.5-10.1); CREATININE 4.5 mg/dL (0.6-1.3); TOTAL BILIRUBIN 0.4 mg/dL (<0.1-1.0); TOTAL PROTEIN 5.1 g/dL (6.4-8.2)
[2021-02-23 06:47] LABS: ABSOLUTE LYMPHOCYTES 1.7 thou/uL (0.8-5.3); ABSOLUTE MONOCYTES 1.3 thou/uL (0.0-1.2); ABSOLUTE NEUTROPHILS 3.9 thou/uL (1.6-8.1)
[2021-02-23 06:48] LABS: ABSOLUTE EOSINOPHILS 0.2 thou/uL (0.0-0.7); PLATELET ESTIMATE ADEQUATE
--- NOTE | 2021-02-23 10:01 | NUR ---
PT RETURNED FROM DIALYSIS AT THIS TIME.
[2021-02-23 11:45] VITALS: BP 100/46
--- NOTE | 2021-02-23 15:32 | NUR ---
PLAN OF CARE: PHYSICIAN INFORMS THAT THE PT IS MEDICALLY STABLE FOR D/C. HOWEVER PT'S DISCHARGE IS CURRENTLY PENDING MEDICAL CLEARANCE WITH [facility] OUTPATIENT HD. D/T NEEDING CLEAR DOCUMENTATION OF PT'S DIAGNOSIS. CM FAXED UPDATED CLINICAL INFO TO [facility]. CM ALSO CALL [facility] TO DETERMINE THE STATUS OF PT'S INSURANCE AUTH. CM ALSO ASKED FOR UPDATED PT/OT EVALS, AND THIS CM WILL FAX THEM TO INS WHEN AVAILABLE TO ASSIST WITH MAINTAINING INSURANCE AUTH FOR THE PT. CM WILL REMAIN AVAILABLE TO ASSIST AND FOLLOW NEEDED.
--- NOTE | 2021-02-23 17:24 | NUR ---
NO ACUTE CHANGES THIS SHIFT. PT ALERT, ORIENTED. FLANAGAN TO DD. 2L VIA NC O2. TURNED Q2H L, R, AND SUPINE. PTS NIECE UPDATED THIS SHIFT VIA PHONE CALL WITH PT PERMISSION. PLAN TX TO [facility] ONCE DIALYSIS CHAIR SET UP, HOWEVER NEEDS BEAMER OPERATOR TO STATE IN NOTE THAT PT HAS ESRD, IF APPLICABLE.
[2021-02-23 22:00] VITALS: BP 85/68
--- NOTE | 2021-02-24 04:53 | NUR ---
ASSUMED PT CARE AT 1930. PT ALERT AND ORIENTED X4. PT HAS DIALYSIS M/W/F. FLANAGAN TO DD DRAINING SMALL AMOUNT OF NOEMY URINE. R TUNNEL IJ DIALYSIS CATHETER. 2L 02 PER NC. DENIES PAIN. Q2 TURNS. DISCHARGE IS DEPENDENT ON NEPHROLOGY CHARACTERIZATION OF PT HAVING ESRD. CALL LIGHT IN REACH. HOURLY ROUNDING IN PROGRESS, WILL CONTINUE TO MONITOR.
[2021-02-24 07:45] VITALS: BP 97/38
[2021-02-24 16:00] VITALS: BP 115/68
--- NOTE | 2021-02-24 18:49 | NUR ---
NO ACUTE EVENTS THIS SHIFT. PT TURNED Q2H. PLANS FOR DIALYSIS TOMORROW. AWAITING SNF PLACEMENT.
[2021-02-25 00:28] VITALS: BP 118/47
--- NOTE | 2021-02-25 06:23 | NUR ---
PATIENT SLEPT MOST OF THE NIGHT. IV REMAINS SALINE LOCKED. PATIENT COULD POSSIBLY DC TODAY IF DIALYSIS IS ABLE TO BE SETUP. FLANAGAN REMAINS TO DEPENDENT DRAIN. WILL CONTINUE TO MONITOR.
[2021-02-25 09:00] VITALS: BP 118/54
--- NOTE | 2021-02-25 15:50 | NUR ---
PLAN OF CARE: CM INFORMED BY [facility] ADMISSIONS OF INABILITY TO ACCEPT PT AT THIS TIME D/T BEING 'BED LOCKED, BECAUSE OF COVID AND LOW STAFFING'. CM DISCUSSED THIS WITH THE PT AND INFORMED OF THE NEED TO ATTEMPT PLACEMENT WITH ANOTHER SNF. PT IN AGREEMENT AND AGREES TO SNF AT [facility]. CM FAXED SNF REFERRAL TO [facility] AND AM CURRENTLY AWAITING CALLBACK TO DISUCSS ABILITY TO ACCEPT THE PT. CM WILL REMAIN AVAILABLE TO ASSIST AND FOLLOW NEEDED.
--- NOTE | 2021-02-25 18:01 | NUR ---
PATIENT BACK FROM DIALYSIS. RESTING IN BED. FLANAGAN SECURELY IN PLACE TO DEPENDENT DRAINAGE WITHOUT COMPLICATIONS. IJ DIALYSIS CATHETER. IV TO RIGHT HAND, SALINE LOCKED. 2L OXYGEN, NASAL CANNULA. NO QUESTIONS OR CONCERNS VOICED.
[2021-02-25 20:25] VITALS: BP 110/54
--- NOTE | 2021-02-25 20:25 | NUR ---
AWAKENEND FOR REASSESSMENT AND MEDICATION PASS. FLANAGAN TO DEPENDENT DRAINAGE WITH NOEMY URINE. CALL LIGHT WITHIN REACH. OXYGEN NASAL CANNULA AT 2.5 LITERS WITH OXYGEN SATURATION OF 98%
[2021-02-26 04:00] VITALS: BP 118/65
[2021-02-26 04:36] LABS: ABSOLUTE BASOPHILS 0.1 thou/uL (0.0-0.2); ABSOLUTE EOSINOPHILS 0.1 thou/uL (0.0-0.7); ABSOLUTE LYMPHOCYTES 1.5 thou/uL (0.8-5.3); ABSOLUTE MONOCYTES 1.2 thou/uL (0.0-1.2); EOSINOPHILS 1.8 %; HEMATOCRIT 26.1 % (42.0-52.0); HEMOGLOBIN 8.6 gm/dL (14.0-18.0); LYMPHOCYTES 19.2 %; MCH 32.1 pg (26.0-34.0); MCHC 32.9 g/dL (28.0-37.0); MCV 97.6 fL (80.0-100.0); MONOCYTES 14.6 %; MPV 8.4 fl. (7.2-11.1); NUCLEATED RBCS 0 /100WBC; PLATELET COUNT* 126 thou/uL (150-400); POLYS 63.4 %; RBC 2.68 mil/uL (4.50-6.00); RDW-CV 14.6 % (10.5-14.5); WBC 7.9 thou/uL (4.0-11.0)
[2021-02-26 04:44] LABS: ALBUMIN 2.1 g/dL (3.4-5.0); TOTAL BILIRUBIN 0.5 mg/dL (<0.1-1.0); TOTAL PROTEIN 5.2 g/dL (6.4-8.2)
[2021-02-26 04:48] LABS: CREATININE 2.4 mg/dL (0.6-1.3)
--- NOTE | 2021-02-26 05:34 | NUR ---
RESTED QUIETLY. ASSISTED WITH REPOSITIONING. REFUSES TO TURN AT TIMES. HOURLY ROUNDING IN PROGRESS.
[2021-02-26 07:57] VITALS: BP 100/46
--- NOTE | 2021-02-26 12:06 | PATH ---
[place] [address] PATHOLOGY RPT PROCEDURE Name: ARIEL ARMENDARIZ Room: [address] IN M.R.#: [id number] Admission: 02/04/21 Date of : 32 Discharge: Report #: [id number] Path Case #: [id number] [facility] Accession Number: [id number] . 01 Material submitted: . kidney - RIGHT KIDNEY. Modifiers: right . 01 Clinical history: . ACUTE RENAL FAILURE . 02 Diagnosis: Special studies report received from [employer], [address] [place] [address], [place] [address], on case [id number], labeled with their number [id number] dated 02/24/2021. . Specimen submitted: By Drew Crowe MD For Kidney, biopsy . DIAGNOSIS: . 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 See Comment. . Mesangial Matrix Expansion. . Arterionephrosclerosis, Mild. . Comment: Calcium oxalate deposition can be seen as a nonspecific finding in patients with acute tubular injury. However, the differential diagnosis also includes oxalate nephropathy. Of note, the background glomeruli show mild mesangial matrix expansion. Mesangial expansion is a non-specific finding most commonly seen in the setting of diabetes mellitus/glucose intolerance disorders. If the patient lacks such clinical history, other associated conditions include smoking and/or longstanding hypertension. . Chronicity Summary Total Glomeruli- 21 Global Glomerulosclerosis- 9 Segmental Sclerosis- Present Interstitial Fibrosis- Mild Tubular Atrophy- Mild Arterial Intimal Fibrosis- Severe Arteriolar Hyalinosis- Moderate . References: Sorin Melendez, et al. Secondary Oxalate Nephropathy: A Systemic Review. Kidney Int Rep 2018; 3:2812-1043. . Clinical History: [place] [address] PATHOLOGY RPT PROCEDURE Name: ARIEL ARMENDARIZ Room: [address] IN .R.#: [id number] Admission: 02/04/21 Date of : 32 Discharge: Report #: [id number] Path Case #: [id number] The patient is an 89-year-old male with acute kidney injury. . Gross Description: Received from [facility] via [facility] are two specimen bottles; one bottle contains formalin and the other contains Louie's fixative. The bottles are labeled with the patient's name (Ariel Armendariz) and date of (1930). . Received in formalin are five pieces of ventura tissue ranging from 0.1 x 0.1 cm to 1.0 x 0.1 cm (two largest pieces dissected). Two pieces are submitted for electron microscopy and the remainder of the tissue is submitted in its entirety for light microscopy. . Received in Louie's fixative is one piece of ventura tissue measuring 0.8 x 0.1 x 0.1 cm. The specimen is submitted in its entirety for immunofluorescence microscopy. . Microscopic Description: . LIGHT MICROSCOPY: . Light microscopy tissue sections are stained for Hematoxylin and Eosin (2), Periodic Acid Salvador (x2), Leon Methenamine Silver (x1). Silver Methenamine with Zach Trichrome (x1), and Zach Trichrome (x1). The renal parenchyma available for light microscopic examination is represented by approximately 70% cortex and 30% medulla. Eleven glomeruli are present, two of which are globally sclerotic. The nonsclerotic glomeruli show mild mesangial matrix expansion without hypercellularity or nodule formation. A single glomerulus shows an area of segmental sclerosis and rare glomera show mild ischemic changes. The capillary loops are without holes, spikes, or double contours on silver stain. There is no endocapillary hypercellularity, fibrinoid necrosis, or cellular crescent formation. Mild interstitial fibrosis and tubular atrophy is present involving approximately 15% of the cortical surface. Minimal interstitial inflammation is present. The tubules are dilated and lined by a vacuolated and reactive epithelium with partial loss of the proximatel tubule brush borders. There is no significant tubulitis. The tubular lumens show scattered hyaline protein casts without associated cellular reaction. Additionally, few translucent and polarizable calcium oxalate crystals are present (up to three crystals throughout the biopsy). The arteries show severe intimal fibrosis. The arterioles show moderate hyalinosis. A Congo red stain is negative for amyloid. Two toluidine blue-stained thick sections are prepared and show five open glomeruli. . Standard of care requirements for proper analysis of renal biopsies mandates serial sections, and PAS, Leon silver, trichrome and SMMT stains at multiple levels. PAS stains are used to evaluate various aspects of the glomerular, tubular, and vascular basement membranes. Leon silver stains are used to evaluate thickening, reduplication, "[place]" [place] [address] PATHOLOGY RPT PROCEDURE Name: ARIEL ARMENDARIZ Room: [address] ADM IN M.R.#: [id number] Admission: 02/04/21 Date of : 32 Discharge: Report #: [id number] Path Case #: [id number] "bubbling" of the glomerular basement membrane. Toluidine blue stained sections highlight glomerular basement membranes and demonstrates unusual types of deposits. It also reveals details of tubular epithelial cells and aids in the analysis of vascular lesions. Zach trichrome stains are used to evaluate interstitial fibrosis and basement membrane deposits. The SMMT stain helps evaluate basement membrane changes, immune deposits and tubulointerstitial scarring. Controls are routinely run on all special stains and are verified for acceptability. A review of the technical quality of routine slides is made before results are reported. . . IMMUNOFLUORESCENCE: The renal parenchyma available for Immunofluorescence studies is entirely represented by cortex and contains five glomeruli, four of which are globally sclerotic. The sections are stained for IgG, IgM, IgA, C3, C1q, albumin, fibrinogen, and kappa and lambda light chains. By darkfield microscopy, the available blood vessels show several intimal fibrosis. The single non-sclerotic glomerulus present in the H and E stain section is no longer present in the remaining sections. All stains are essentially negative throughout the tubulointerstitium. [place] and lambda stain equally. . The retried formalin-fixed paraffin-embedded tissue is stained for IgA, IgG, IgM, C3, and kappa and lambda light chains. There is mesangial finely granular staining for IgA (trace), kappa (trace) and lambda (trace). All other stains are negative within the glomeruli. There is no significant extraglomerular staining. [place] and lambda stain equally throughout the tubulointerstitium. . Performance of all Immunofluorescence stains are verified for acceptability before results are reported. Internal antigens within the kidney parenchyma serve as positive and negative controls. . ELECTRON MICROSCOPY: Two blocks are prepared. Ultrastructural examination of a glomerulus shows mildly thickened and wrinkled glomerular basement membranes with immune complex-type electron dense deposits. The epithelial foot processes are moderately effaced. The mesangium is mildly expanded with occasional ill-defined electron densities. The tubular basement membranes are without deposits. . Special procedures including Immunofluorescence and electron microscopy correlate with the light microscopy findings. . Note: Some of the tests reported here may have been developed and performance characteristics determined by [employer]. They have not been cleared or approved by the U.S. Food and Drug Administration (FDA). The FDA does not require this test to go through premarket FDA review. This test is used for clinical purposes[place] [address] PATHOLOGY RPT PROCEDURE Name: ARIEL ARMENDARIZ Ramone Room: [address] ADM IN [facility].#: [id number] Admission: 02/04/21 Date of : 32 Discharge: Report #: [id number] Path Case #: [id number] regarded as investigational or for research. [employer] is certified under the Clinical Laboratory Improvement Amendments of 1988 (CLIA) as qualified to perform high complexity clinical laboratory testing. . . Physician/Physician's office called on 02/24/2021 at 1:55 PM Central. . *I have reviewed the clinical history, the pertinent gross findings, all microscopic materials, discussed the case with the clinician when appropriate, and have rendered the final diagnosis. . . Final Diagnosis performed by Jaz Gageally signed 02/24/2021 5:31:12 PM . A complete copy of the report is on file. . Professional and technical services performed by [employer] at [address] [place] [address], [facility] [address], [place], [address]. . (SHAHANA:amj 02/25/2021) . . AZJ 02/25/2021 1247 Local . 02 Electronically signed: . Les Duckworth MD, Pathologist NPI- [id number] . 01 Gross description: . The specimen is received in formalin, labeled "Ariel Armendariz, right renal biopsy " and the specimen consists of 2 ventura cylindrical needle core tissue ranging in length from 0.8 cm to 1.0 cm and each measuring <0.1 cm in diameter. The specimen is forwarded to an outside laboratory for further processing. Also received is a container of Louie's fixative, labeled "Ariel Armendariz, right renal biopsy" and the specimen consists of a ventura-pink cylindrical needle core biopsy measuring 0.8 cm in length by <0.1 cm in diameter. The specimen is forwarded to an outside laboratory for further processing. ([place]; 02/19/2021) DKA/DKA 02/19/2021 1857 Local . 02 Pathologist provided ICD-10: N17.9 . 02 [place] [address] PATHOLOGY RPT PROCEDURE Name: ARIEL ARMENDARIZ Room: [address] IN M.R.#: [id number] Admission: 02/04/21 Date of : 32 Discharge: Report #: [id number] Path Case #: [id number] Specimen Comment: A courtesy copy of this report has been sent to [phone], [phone] Specimen Comment: [phone], Specimen Comment: Report sent to , DR DESAI / DR LOCKHART Specimen Comment: A duplicate report has been generated due to demographic updates. Performed at: 01 [facility] [address], [place] [id number] MD Kodak Interiano MD Phone: [phone] Performed at: 02 [facility] [address], [place], [place] [id number] MD Les Duckworth MD Phone: [phone]
--- NOTE | 2021-02-26 15:09 | NUR ---
PLAN OF CARE: CM CALLED AND FAXED UPDATED PT/OT NOTES TO [facility] FOR SNF AUTH. CM HAS NOT RECIEVED CALL BACK CONFIRMING THAT THE INFO HAD BEEN RECEIVED OR THAT THE FACILITY IS ABLE TO ACCEPT THE PT TODAY. CM WILL CONTINUE TO ATTEMPT TO MAKE CONTACT WITH [facility] TO CONFIRM ABILITY TO ACCEPT THIS PT. CM WILL REMAIN AVAILABLE TO ASSIST AND FOLLOW NEEDED.
--- NOTE | 2021-02-26 15:44 | NUR ---
PT UP WITH GAIT BELT AND 2 X ASST OR WITH CURLY. PT IS ON 2L 02. PT HAS LEFT HAND IV AND RT SIDE IJ. PT HAS FLANAGAN WITH NOEMY URINE. PT HAS DIALYSIS Tue. PT IS RESTING WITH CALL LIGHT IN REACH AND FALL PRECAUTIONS IN PLACE.
[2021-02-26 15:56] VITALS: BP 122/55
[2021-02-26 20:00] VITALS: BP 99/38
[2021-02-27 01:05] VITALS: BP 90/45
--- NOTE | 2021-02-27 05:00 | NUR ---
ASSUMED CARE AT 1920. ALERT AND ORIENTED. O2 2.5L NC. RIGHT IJ DIALYSIS CATHETER. FLANAGAN CATHETER DD NOEMY URINE. OLIGURIA. LEFT HAND SALINE LOCK. SLEPT WELL. BED ALARM ON.
[2021-02-27 07:22] LABS: ALBUMIN 2.1 g/dL (3.4-5.0); CALCIUM 8.3 mg/dL (8.5-10.1); POTASSIUM 4.1 mmol/L (3.5-5.1); TOTAL BILIRUBIN 0.4 mg/dL (<0.1-1.0); TOTAL PROTEIN 5.3 g/dL (6.4-8.2)
[2021-02-27 07:24] LABS: CREATININE 3.5 mg/dL (0.6-1.3)
[2021-02-27 15:20] VITALS: BP 99/35
--- NOTE | 2021-02-27 16:27 | NUR ---
PLAN OF CARE: CM RECEIVED A CALLBACK FROM [facility] WITH [employer] TO DECLINE PT D/T STAFFING AND BED AVAILABILITY. CM CALLED [facility] AND THEY INFORM OF ABILITY TO POSSIBLY ACCEPT THE PT TUESDAY. CM FAXED [facility]BS PT'S UPDATED CLINICAL INFO. CM WILL REMAIN AVAILABLE TO ASSIST AND FOLLOW NEEDED. [facility] PHONE: [phone]
--- NOTE | 2021-02-27 18:19 | NUR ---
ALERT AND ORIENTED X4. PATIENT IN DIALYSIS TODAY AND HAD 1 L OF FLUIDS REMOVED. DENIES PAIN OR NAUSEA. HAS FLANAGAN CATHETER PATENT WITH CLEAR YELLOW URINE. REMAINS ON O2 AT 3L/NC TO KEEP O2 SATS IN 90'S. REPOSITIONED IN BED EVERY 2 HOURS. TAKES PILLS WITHOUT DIFFICULTY. USES CALL LIGHT FOR ASSIST. FALL PRECAUTIONS IN PLACE. DRESSING OVER DIALYSIS SITE DRY AND INTACT.
[2021-02-27 20:00] VITALS: BP 102/49
[2021-02-28] VITALS: BP 92/34
--- NOTE | 2021-02-28 05:05 | NUR ---
ASSUMED CARE AT 1930. PATIENT RESTED IN BED ALL NIGHT. SLEPT MUCH OF THE NIGHT. O2 3L/NC. FLANAGAN DRAINS NOEMY URINE. TURNED Q2H. RT IJ TUNNELED DIALYSIS PORT DRESSING INTACT. SALINE LOCK INTACT. FLANAGAN DRAINS NOEMY URINE. HOURLY ROUNDS CONTINUE. BED ALARM ON. CALL LITE IN REACH.
[2021-02-28 07:35] VITALS: BP 101/52
[2021-02-28 07:52] VITALS: BP 101/52
[2021-02-28 12:03] VITALS: BP 127/59
[2021-02-28 16:00] VITALS: BP 101/50
--- NOTE | 2021-02-28 17:34 | NUR ---
PT UP WITH GAIT BELT AND X2 ASST OR CURLY. PT IS ON 3L 02 . PT HAS IJ . PT HAD IV IN LT HAND THAT WAS DC'D THIS SHIFT. PT HAS FLANAGAN. PT HAS NO COMPLAINTS OF PAIN. PT IS RESTING WITH CALL LIGHT IN REACH AND FALL PRECAUTIONS IN PLACE.
[2021-02-28 19:45] VITALS: BP 104/44
--- NOTE | 2021-02-28 19:50 | NUR ---
RESTING IN BED ON LEFT SIDE. DENIES NEED FOR PAIN MEDICATION. FLANAGAN TO DEPENDENT DRAINAGE WITH NOEMY URINE. OXYGEN NASAL CANNULA AT 3 LITERS. CALL LIGHT WITHIN REACH.
[2021-03-01] VITALS: BP 106/46
--- NOTE | 2021-03-01 04:52 | NUR ---
RESTED ON/OFF. CAN BE ANXIOUS AND CONFUSED AT TIMES. AT ABOUT 0200 PATIENT WAS WANTING HIS SIDERAIL DOWN THINKING IT WAS TIME FOR BREAKFAST.
[2021-03-01 08:05] VITALS: BP 107/46
[2021-03-01 12:00] VITALS: BP 94/43
--- NOTE | 2021-03-01 13:48 | NUR ---
PT DID GET UP WITH X 2 ASST IN CHAIR. PT ON 3 L 02. PT HAS IJ IN RT CHEST. PT HAD MASHA WAS DC'D THIS SHIFT. PT IS DCING TO IGNITE IN BS VIA [facility]. FAMILY NOTIFIED. PT IS RESTING WITH CALL LIGHT IN REACH,
--- NOTE | 2021-03-01 16:02 | NUR ---
gave report to Bia @ 2902 at [facility].
== END 2021-03-01 16:20 | DRG 673 ==
LOC: M.ERS 16:45 → M.3W 18:19 → M.TBA-ER 18:19 → M.2W 18:19 → M.3W 02-05 01:39 → M.2W 02-08 20:10
PROVIDERS: Internal Medicine; Internal Medicine Critical Care Medicine; Internal Medicine Nephrology; Physician Assistant; ADMIT Internal Medicine; ATTEND Internal Medicine
DX: N17.0 Acute kidney failure with tubular necrosis (principal); G93.41 Metabolic encephalopathy; I50.23 Acute on chronic systolic (congestive) heart failure; E87.1 Hypo-osmolality and hyponatremia; I42.9 Cardiomyopathy, unspecified; J96.10 Chronic respiratory failure, unspecified whether with hypoxia or hypercapnia; K56.609 Unspecified intestinal obstruction, unspecified as to partial versus complete obstruction; I13.2 Hypertensive heart and chronic kidney disease with heart failure and with stage 5 chronic kidney disease, or end stage renal disease; I48.0 Paroxysmal atrial fibrillation; M19.90 Unspecified osteoarthritis, unspecified site; J44.9 Chronic obstructive pulmonary disease, unspecified; I25.10 Atherosclerotic heart disease of native coronary artery without angina pectoris; D64.9 Anemia, unspecified; J61 Pneumoconiosis due to asbestos and other mineral fibers; N18.6 End stage renal disease; I95.9 Hypotension, unspecified; Z20.822 Contact with and (suspected) exposure to COVID-19; Z90.49 Acquired absence of other specified parts of digestive tract; I25.2 Old myocardial infarction; Z87.891 Personal history of nicotine dependence; Z79.82 Long term (current) use of aspirin; Z79.899 Other long term (current) drug therapy